=== PATIENT | female | born 1935 | race Caucasian/White ===

== ENCOUNTER 2023-01-19 07:40 | Inpatient (IN) ==
--- NOTE | 2023-01-19 08:07 | Emergency Department Note ---
HPI General Chief complaint: Extremity Injury, Lower Stated complaint: Fall 2 days ago Time Seen by Provider: 01/19/23 07:43 Source: patient Mode of arrival: ambulatory Limitations: no limitations History of Present Illness HPI Narrative: Narrative: 87-year-old female presents with daughter from home normally is able to ambulate with a walker though does need assistance with showering bathing dressing presents with a fall on Tuesday after tripping in the living room on the table landing on her left forearm left hip. No head strike or LOC. Daughter heard it and immediately came in. She was at her baseline mentation. Had some bruising to her left forearm and left inner ankle. However since the fall patient has been unable to bear weight on her left leg secondary to pain. Daughter has been unable to even assist her to walk to the restroom. Otherwise has been eating and drinking well. With no complaints of chest pain shortness of breath nausea vomiting abdominal pain. No neck low back pain. No numbness tingling focal weakness. No blood thinners. Was given a gram of Tylenol at 5 AM for left hip pain. Bruising to left forearm is healing well Related Data Home Medications Medication Instructions Recorded Confirmed ferrous sulfate 325 mg (65 mg 325 mg PO DAILY 04/21/15 08/07/22 iron) tablet lisinopril 10 1 tab PO DAILY 04/21/15 08/07/22 mg-hydrochlorothiazide 12.5 mg tablet cholecalciferol (vitamin D3) 50 2,000 unit PO DAILY 04/25/18 08/07/22 mcg (2,000 unit) chewable tablet omeprazole 20 mg capsule,delayed 20 mg PO ACB 04/25/18 08/07/22 release sennosides 8.6 mg-docusate sodium 1 ea PO PRN PRN Constipation 04/25/18 08/07/22 50 mg tablet (Senokot-S) Previous Rx's Medication Instructions Recorded cephalexin 500 mg capsule 500 mg PO QID #20 caps 08/14/22 Allergies Allergy/AdvReac Type Severity Reaction Status Date / Time No Known Drug Allergies Allergy Verified 06/29/22 08:39 Review of Systems ROS ROS Narrative: Narrative: 10 point review of system is otherwise negative except as mentioned in HPI. [facility] Narrative Patient History Narrative: Narrative: Medical/Surgical/Family History All Active Problems (Updated 01/19/23 @ 10:53 by Ary Arthur MD) Acute UTI (Acute) Dehydration (Acute) Subcapital fracture of left hip (Acute) S/P total knee arthroplasty (Chronic) Laceration (Chronic) Laceration (Acute) Encounter for wound re-check (Chronic) Gastroesophageal reflux disease with hiatal hernia (Chronic) Herpes zoster (Chronic) Cellulitis (Chronic) Recurrent UTI (Chronic) Hypertension (Chronic) DJD (degenerative joint disease) (Chronic) Hiatal hernia (Chronic) Adenomatous colon polyp (Chronic) Hyperlipidemia (Chronic) Osteopenia (Chronic) Incontinence (Chronic) Mixed stress and urge urinary incontinence (Chronic) Incomplete bladder emptying (Chronic) UTI (urinary tract infection) (Acute) Medical History Adenomatous colon polyp Cellulitis DJD (degenerative joint disease) Encounter for wound re-check Gastroesophageal reflux disease with hiatal hernia Herpes zoster Hiatal hernia Hyperlipidemia Hypertension Incontinence Laceration Osteopenia Recurrent UTI Surgical History History of bilateral cataract extraction (~2013) History of breast biopsy x2 History of bunionectomy Left History of colpocleisis (~05/2009) History of shoulder replacement Right, 06/2005 History of surgery CTS b/l History of surgery LTKR S/P total knee arthroplasty Bilateral Family History Mother Cerebrovascular accident Other Cancer Diabetes HTN (hypertension) Social History Smoking Status: Never smoker Alcohol Intake Frequency: does not drink Substance Use: does not use Exam Narrative Narrative: Narrative: (Please note that portions of this note may have been completed with a voice recognition program. Efforts were made to edit the dictations but occasionally words are mis-transcribed) CONSTITUTIONAL: Well-nourished well-hydrated elderly female 65 kg frail. Resting comfortably. Not in acute distress. Non toxic. Awake alert. Cooperative, follows commands. HEAD: Normocephalic. Atraumatic. EYES: EOMI PERRL, corrective lens ENT: No drooling stridor. speech clear fluent. MMM. No septal hematoma. NECK: Supple. Full range of motion. Trachea midline. no midline C-spine tenderness step-offs CARDIOVASCULAR: Adequate peripheral perfusion. S1-S2. Regular rate and rhythm. Systolic murmur. No JVD. No lower extremity edema. +2 radial DP pulses bilaterally. PULMONARY: Nonlabored. Speaking full sentences. No use of accessory muscles. Clear to auscultation bilaterally. No rhonchi wheeze or crackles. No chest wall tenderness crepitus ABDOMINAL: Positive bowel sounds. Soft. Nondistended. Nontender. EXTREMITIES: No gross deformities. Moves all 4 extremities with good strength and tone. No midline TL spine tenderness step-offs. Pelvis stable. Does have limited flexion of the left hip. Bilateral knee replacements. Able to dorsiflex and plantarflex both ankles. Limited flexion at the left knee secondary to pain in the left groin. A small 1 cm bruise noted to the left medial ankle but nontender. Large bruise approximately 8 x 4 cm noted on the mid dorsal left forearm however nontender. No bony abnormalities. Palpated ulnar radial bones with no tenderness on palpation. Able to flex extend at the wrist elbow shoulder with no difficulty discomfort with good handgrips. SKIN: Warm and dry. No petechiae. NEUROLOGY: Sensation is intact. No gross focal deficits. GCS of 15 General Limitations: no limitations Course Vital Signs Vital signs: Vital Signs Temperature 36.8 C 01/19/23 07:41 Pulse Rate 105 H 01/19/23 07:41 Respiratory Rate 20 01/19/23 07:41 Blood Pressure 153/88 01/19/23 07:41 Pulse Oximetry (%) 94 01/19/23 07:41 Oxygen Delivery Method Room Air 01/19/23 07:41 Temperature 36.8 C 01/19/23 07:41 Pulse Rate 99 H 01/19/23 11:32 Respiratory Rate 20 01/19/23 07:41 Blood Pressure 131/81 01/19/23 11:32 Pulse Oximetry (%) 93 01/19/23 11:32 Oxygen Delivery Method Room Air 01/19/23 07:41 MDM MDM Narrative Medical decision making narrative: Narrative:ddx fracture dislocation neurovascular tendon injury etc. Again no head strike no blood thinners no change in mentation. I have a low suspicion for intracranial trauma at this time. Regarding the left forearm bruise patient has no tenderness painful range of motion low suspicion for fracture. No imaging at this time. However I do recommend an image of the left hip pelvis concern for hip pubic rami fractures. Agreeable. Was told to stay NPO. X-ray of the hip pelvis on the left shows no acute fractures location degenerative changes. Her patient is still unable to bear weight on the left hip. And so CT pelvis was ordered. Does show an acute left subcapital fracture of the left femoral neck. I did inadvertently order CT abdomen pelvis. No acute intra- abdominal process and for a large hiatal hernia. I had gone to update the patient and daughter on results clinical versus treatment plan. I subsequently informed that daughter had stepped out. Orthopedics spoken to. Dr Milligan. Unfortunately was informed by nursing that patient did had very minimal breakfast a couple sips of a protein shake and so daughter had fed her an ice cream sandwich bar at 10 AM. I did ask the daughter and patient to remain strict NPO. Will have to go to the OR later this evening. Hospitalist has been paged. Have otherwise been updated on results and emergency room plan. She is resting comfortably. Preop labs EKG were ordered. Chest x-ray is negative. EKG per EDMD interpretation shows a sinus rhythm at 100 bpm. Left axis deviation. No ST elevations or depressions. No T wave abnormalities. Prolonged QTc at 494. Otherwise no ectopy. No old EKG. Labs are otherwise unremarkable. PureWick has been placed we will Andrade if patient is unable to tolerate. Final Impressions: 1. Acute left subcapital fracture of the left femoral neck 2. left forearm contusion Disposition: admit Condition: fair Lab Data Lab results reviewed: Yes I reviewed the patient's lab results. 01/19/23 10:41 Labs: Lab Results 01/19/23 01/19/23 Range/Units 10:41 11:06 WBC 9.1 (4.5-11.0) K/mcL RBC 4.28 (3.59-5.38) M/mcL Hgb 13.3 (11.2-15.7) g/dL Hct 39.4 (34.1-44.9) % POC Hct 40.0 (36-48) MCV 92.1 (80.0-100.0) fL MCH 31.1 (26.0-34.0) pg MCHC 33.8 (31.0-36.0) g/dL RDW 13.2 (11.5-14.5) % Plt Count 224 (140-440) K/mcL MPV 9.2 (8.8-12.5) fL Immature Gran % (Auto) 0.4 (0.0-0.5) % Neut % (Auto) 81.2 H (38.0-78.0) % Lymph % (Auto) 8.8 L (15.5-49.0) % [place] % (Auto) 8.8 (1.0-12.0) % Eos % (Auto) 0.6 (0.0-7.0) % Baso % (Auto) 0.2 (0.0-2.0) % Lymph # (Auto) 0.80 L (1.50-4.80) K/mcL [place] # (Auto) 0.80 (0.10-0.90) K/mcL Eos # (Auto) 0.05 (0.00-0.70) K/mcL Baso # (Auto) 0.02 (0.00-0.30) K/mcL Immature Gran # 0.04 (0.00-0.05) K/mcl Absolute Neutrophils 7.35 (1.80-8.00) K/mcL POC Sodium 137 (133-145) POC Potassium 3.4 (3.3-5.1) POC Chloride 101 (96-108) POC Total CO2 22.0 (22-30) POC Anion Gap 19.0 H (8.0-16.0) POC BUN 22 H (6-20) POC Creatinine 0.5 L (0.6-1.2) POC Glucose 121 H (70-105) POC WB Ioniz Calcium 1.12 L (1.16-1.32) Radiology Data Radiology results reviewed: Yes I reviewed the patient's radiology results. Discharge Plan Patient/Caregiver Discharge Instructions Pt seen by CONSULTANT TEACHER/PA only: No Clinical Impression: Subcapital fracture of left hip Patient Disposition: Xfer As Inpt ([facility]) Condition: Fair Follow up with: Christina Guy MD [Primary Care Provider] - Prescriptions: No Action lisinopril-hydrochlorothiazide 1 TAB tablet 1 tab PO DAILY ferrous sulfate 325 MG tablet 325 mg PO DAILY Patient Comments: 3-4 TIMES DAILY IN PREPARATION FOR SURGERY sennosides-docusate sodium [Senokot-S] 1 EACH tablet 1 ea PO PRN PRN (Reason: Constipation) omeprazole 20 MG capsule,delayed release(DR/EC) 20 mg PO ACB cholecalciferol (vitamin D3) 2,000 UNIT tablet,chewable 2,000 unit PO DAILY cephalexin 500 mg capsule 500 mg PO QID Qty: 20 0RF
--- NOTE | 2023-01-19 09:00 | XRay Report ---
HISTORY: Fell with pubic ramus pain FINDINGS: No fracture or dislocation are detected. The pelvis is rotated to the right. There are multiple heterotopic calcifications in the soft tissues around both hips and there is spurring of the greater trochanters. There is also moderate degenerative disc disease and arthritis in the lower lumbar spine. The pubic bones and rami appear intact. Comparison with the prior x-ray done on 04/01/20 shows there has been significant progression of the arthritis. IMPRESSION: Degenerative changes in both hips and no fracture is detected. Interpreted and Authenticated by: Galo Rajan 01/19/23
[2023-01-19] MEDS ORDERED: ACETAMINOPHEN 325 MG TABLET PO ONE (09:44)
--- NOTE | 2023-01-19 10:26 | Cat Scan Report ---
History: Fell, left hip pain and unable to bear weight technique: The abdomen was imaged without contrast in axial plane at 2.5 mm intervals from the level of the heart to the proximal femurs. Sagittal and coronal reformats were created. The radiation exposure was limited using dose reduction technology. FINDINGS: There is a large hiatus hernia with an organoaxial volvulus. This is a chronic stable finding, unchanged since 09/07/16. There are couple small cysts scattered throughout the liver. These are also a chronic stable finding. The overall size of the liver is normal. The gallbladder appears normal with no calcified stones or thickening of the wall. The bile ducts are nondilated. Spleen is normal in size. No abnormality is detected within the pancreas. The adrenals are normal. There is an exophytic 3 cm cyst laterally in the upper pole of the right kidney. This has enlarged since 2017 but appears benign. The kidneys are otherwise normal. Scattered plaques are present along the wall of normal caliber abdominal aorta. Small intestine is normal. Appendix is noninflamed. Numerous diverticula are present in the sigmoid colon but there is no evidence of acute diverticulitis or bowel obstruction. Uterus and ovaries are atrophic. Urinary bladder is incompletely filled but appears normal. Bone windows reveal an acute subcapital fracture of the left femoral neck. There is impaction along the inferior medial border. The femoral head remains normally aligned with the acetabulum. There is arthritis in the hip with small marginal spurs and heterotopic calcification surrounding the joint. No pelvic fracture is present. There is degenerative disc disease, arthritis and scoliosis in the lumbar spine. IMPRESSION: Subcapital fracture of the left femoral neck Diverticulosis without diverticulitis No intra-abdominal hemorrhage or evidence of lacerated abdominal organ Large hiatus hernia with an organoaxial volvulus Dr. Arthur was called with the report Interpreted and Authenticated by: Galo Rajan 01/19/23
--- NOTE | 2023-01-19 10:50 | XRay Report ---
HISTORY: Preop for repair of left hip fracture FINDINGS: There is a large retrocardiac hiatus hernia. The lungs are clear. The heart size is normal and was better evaluated on the preceding abdomen CT. There is no pleural effusion or pulmonary vascular congestion. Patient has a right shoulder prosthesis. The prosthetic humeral head is subluxed superiorly. There is also arthritis and subluxation at the left shoulder. IMPRESSION: No acute abnormality Interpreted and Authenticated by: Galo Rajan 01/19/23
[2023-01-19 11:09] LABS: POC Calcium, Ionized 1.12 (1.16-1.32); POC Creatinine 0.5 (0.6-1.2); POC Potassium 3.4 (3.3-5.1)
[2023-01-19 11:25] LABS: Basophils # (Auto) 0.02 K/mcL (0.00-0.30); Basophils % (Auto) 0.2 % (0.0-2.0); Eosinophils # (Auto) 0.05 K/mcL (0.00-0.70); Eosinophils % (Auto) 0.6 % (0.0-7.0); Hematocrit 39.4 % (34.1-44.9); Hemoglobin 13.3 g/dL (11.2-15.7); Lymphocytes % (Auto) 8.8 % (15.5-49.0); Mean Cell Volume 92.1 fL (80.0-100.0); Mean Corpuscular HGB Conc 33.8 g/dL (31.0-36.0); Mean Platelet Volume 9.2 fL (8.8-12.5); Monocytes % (Auto) 8.8 % (1.0-12.0); Neutrophils % (Auto) 81.2 % (38.0-78.0); Platelet Count 224 K/mcL (140-440); RBC 4.28 M/mcL (3.59-5.38); Red Cell Distribution Width 13.2 % (11.5-14.5); WBC 9.1 K/mcL (4.5-11.0)
[2023-01-19] MEDS ORDERED: morphine 2 MG/ML VIAL IV ONE (13:18)
--- NOTE | 2023-01-19 13:20 | Internal Med History&Physical ---
HPI History of Present Illness Patient information: Note initiated : 01/19/23 at 1:18 pm Service Date, if different from initiated Date: [] Patient: Karen Shaw 87 y/o F admitted on . Chief Complaint: [] History of present illness: Ms. Shaw is a 87 year old female with past medical history of CKD stage II, hypertension, hyperlipidemia, Parkinson's disease, GERD, osteopenia, recurrent UTIs, DJD presented to ER accompanied by her daughter after she had a fall 2 days ago when she tripped in the living room landing on her left hip and left forearm. She had no head injury, no loss of consciousness. Patient lives with her daughter who heard the fall and came in immediately. Patient had some bruising on her left forearm and left ankle. At baseline patient is able to ambulate with a walker however does need some assistance with ADLs. However since the fall patient has been unable to bear weight on her left leg secondary to pain. Daughter has been unable to even assist her to walk to the restroom. Otherwise has been eating and drinking well. With no complaints of chest pain shortness of breath nausea vomiting abdominal pain. No neck low back pain. No numbness tingling focal weakness. No blood thinners. Was given a gram of Tylenol at 5 AM for left hip pain. Bruising to left forearm is healing well. On presentation patient was tachycardic with heart rate 97, blood pressure was stable. She was satting well on room air. CT abdomen and pelvis showed subcapital fracture of left femoral neck. Large hiatal hernia within organoaxial volvulus. No acute intra-abdominal hemorrhage or lacerated abdominal organs. Lab work including CBC and CMP was benign apart from mild hypokalemia of 3.4. Dr. Milligan from orthopedic was consulted by ER. Preoperative work-up including EKG and chest x-ray unremarkable. Review of system 14 point review of system is otherwise negative except as mentioned in HPI. Physical examination CONSTITUTIONAL: Alert and awake, well nourished female, resting comfortably. In no acute distress. HEAD: Normocephalic. Atraumatic. EYES: EOMI PERRL, corrective lens ENT: No drooling stridor. speech clear fluent. MMM. No septal hematoma. NECK: Supple. Full range of motion. Trachea midline. no midline C-spine tenderness step-offs CARDIOVASCULAR: S1-S2. Regular rate and rhythm. Systolic murmur. No JVD. No lower extremity edema. +2 radial DP pulses bilaterally. PULMONARY: Chest is clear bilaterally, satting well on room air ABDOMINAL: Positive bowel sounds. Soft. Nondistended. Nontender. EXTREMITIES: Tenderness at left hip, movement limited due to pain. Bilateral knee replacements. Able to dorsiflex and plantarflex both ankles. Limited flexion at the left knee secondary to pain in the left groin. A small bruise noted to the left medial ankle but nontender. Large bruise approximately 8 x 4 cm noted on the mid dorsal left forearm however nontender. No bony abnormalities. Able to flex extend at the wrist elbow shoulder with no difficulty discomfort with good handgrips. SKIN: Warm and dry. No petechiae. NEUROLOGY: Sensation is intact. No gross focal deficits. Assessment and plan Acute left subcapital fracture of left femoral neck mechanical fall Left forearm contusion Hypokalemia Hypertension Hyperlipidemia CKD stage II Parkinson's disease GERD DJD DVT prophylaxis in place Plan Dr. Milligan from orthopedic was consulted by ER. Preop EKG and chest x-ray completed. Plan for surgery later today Replace potassium Pain control Blood pressure control with IV as needed Continue PPI Total time taken 70 minutes PFSH PFSH All Active Problems (Updated 01/20/23 @ 07:46 by Sg Edwards PA-C) Acute UTI (Acute) Dehydration (Acute) Subcapital fracture of left hip (Acute) S/P total knee arthroplasty (Chronic) Laceration (Chronic) Laceration (Acute) Encounter for wound re-check (Chronic) Gastroesophageal reflux disease with hiatal hernia (Chronic) Herpes zoster (Chronic) Cellulitis (Chronic) Recurrent UTI (Chronic) Hypertension (Chronic) DJD (degenerative joint disease) (Chronic) Hiatal hernia (Chronic) Adenomatous colon polyp (Chronic) Hyperlipidemia (Chronic) Osteopenia (Chronic) Incontinence (Chronic) Mixed stress and urge urinary incontinence (Chronic) Incomplete bladder emptying (Chronic) UTI (urinary tract infection) (Acute) Medical History Adenomatous colon polyp Cellulitis DJD (degenerative joint disease) Encounter for wound re-check Gastroesophageal reflux disease with hiatal hernia Herpes zoster Hiatal hernia Hyperlipidemia Hypertension Incontinence Laceration Osteopenia Recurrent UTI Surgical History History of bilateral cataract extraction (~2013) History of breast biopsy x2 History of bunionectomy Left History of colpocleisis (~05/2009) History of shoulder replacement Right, 06/2005 History of surgery CTS b/l History of surgery LTKR S/P total knee arthroplasty Bilateral Family History Mother Cerebrovascular accident Other Cancer Diabetes HTN (hypertension) Social History marital status: smoking status: Never smoker alcohol intake frequency: does not drink substance use type: does not use MEDS/ALLERGIES Home Medications and Allergies Home Medications Medication Instructions Recorded Confirmed Type lisinopril 10 1 tab PO DAILY 04/21/15 01/19/23 History mg-hydrochlorothiazide 12.5 mg tablet cholecalciferol (vitamin D3) 50 2,000 unit PO DAILY 04/25/18 01/19/23 History mcg (2,000 unit) chewable tablet omeprazole 20 mg capsule,delayed 20 mg PO ACB 04/25/18 01/19/23 History release sennosides 8.6 mg-docusate sodium 1 ea PO PRN PRN Constipation 04/25/18 01/19/23 History 50 mg tablet (Senokot-S) cyanocobalamin (vitamin B-12) 25 25 mcg PO QDAY 01/19/23 01/19/23 History mcg tablet diphenhydramine 25 2 tab PO QHS PRN Pain (Scale Score 01/19/23 01/19/23 History mg-acetaminophen 500 mg tablet 1-3) (Acetaminophen PM Extra Strength) fluoxetine 40 mg DAILY 01/19/23 01/20/23 History Allergies Allergy/AdvReac Type Severity Reaction Status Date / Time No Known Drug Allergies Allergy Verified 01/19/23 17:00 EXAM Constitutional Vitals: Temp Pulse Resp BP Pulse Ox O2 Del Method 98.2 F 99 H 20 145/92 93 Room Air 01/19/23 07:41 01/19/23 11:32 01/19/23 07:41 01/19/23 13:01 01/19/23 11:32 01/19/23 07:41 DATA Data Completed and Pending Labs: Labs from last 24 hours 01/19/23 01/19/23 01/19/23 11:06 10:41 10:41 WBC 9.1 RBC 4.28 Hgb 13.3 Hct 39.4 POC Hct 40.0 MCV 92.1 MCH 31.1 MCHC 33.8 RDW 13.2 Plt Count 224 MPV 9.2 Immature Gran % (Auto) 0.4 Neut % (Auto) 81.2 H Lymph % (Auto) 8.8 L [place] % (Auto) 8.8 Eos % (Auto) 0.6 Baso % (Auto) 0.2 Lymph # (Auto) 0.80 L [place] # (Auto) 0.80 Eos # (Auto) 0.05 Baso # (Auto) 0.02 Immature Gran # 0.04 Absolute Neutrophils 7.35 PT Pending INR Pending APTT Pending POC Sodium 137 POC Potassium 3.4 POC Chloride 101 POC Total CO2 22.0 POC Anion Gap 19.0 H POC BUN 22 H POC Creatinine 0.5 L POC Glucose 121 H POC WB Ioniz Calcium 1.12 L A/P Time Spent With Patient Time: Total time spent is greater than 50% in coordination of care (as documented) at patient's floor/unit and/or counseling patient:
[2023-01-19 14:22] LABS: Partial Thromboplastin Time 30.9 sec (20.0-37.0); Prothrombin Time 13.3 sec (11.9-14.5)
[2023-01-19] MEDS ORDERED: ONDANSETRON 4 MG/2 ML VIAL IV PRN ×2 (15:27→18:53)
[2023-01-19] MEDS ORDERED: ACETAMINOPHEN 325 MG TABLET PO PRN (15:27)
[2023-01-19] MEDS ORDERED: SCOPOLAMINE 1 PATCH PATCH TOPICAL PRN (15:41)
[2023-01-19] MEDS ORDERED: IPRATROPIUM/ALBUTEROL 3 ML AMPUL.NEB NEB PRN ×2 (15:41→18:53)
[2023-01-19] MEDS: HYDROmorphone 0.5 MG/0.5 ML SYRINGE IV PRN (16:30)
[2023-01-19] MEDS: 0.9 % SODIUM CHLORIDE 10 ML SYRINGE IV SCH ×2 (16:31→20:19)
[2023-01-19] MEDS ORDERED: 0.9 % SODIUM CHLORIDE 250 ML IV SCH (17:45)
[2023-01-19] MEDS ORDERED: PROPOFOL 200 MG/20 ML VIAL IV ONE (17:56)
[2023-01-19] MEDS ORDERED: DEXAMETHASONE 10 MG/ML VIAL ONE (17:56)
[2023-01-19] MEDS ORDERED: ROCURONIUM 10 MG/ML ML IV ONE (17:56)
[2023-01-19] MEDS ORDERED: ONDANSETRON 4 MG/2 ML VIAL ONE (17:56)
[2023-01-19] MEDS ORDERED: SUGAMMADEX SODIUM 200 MG/2 ML VIAL IV ONE (17:56)
[2023-01-19] MEDS ORDERED: PHENYLephrine 1 MG/10 ML SYRINGE (ANEST) ONE (17:56)
[2023-01-19] MEDS ORDERED: fentaNYL 100 MCG/2 ML VIAL IV ONE (17:56)
[2023-01-19] MEDS ORDERED: ceFAZolin 2 GM in DEXTROSE 5% IN WATER 50 ML IV SCH (18:00)
[2023-01-19] MEDS ORDERED: LABETALOL 5 MG/ML ML IV PRN ×2 (18:53→19:23)
[2023-01-19] MEDS ORDERED: ACETAMINOPHEN 1,000 MG/100 ML BAG IV ONE ×2 (18:53→19:26)
[2023-01-19] MEDS ORDERED: HYDROmorphone 0.5 MG/0.5 ML SYRINGE IV PRN (18:53)
[2023-01-19] MEDS ORDERED: METOPROLOL TARTRATE 5 MG/5 ML VIAL IV PRN (18:53)
[2023-01-19] MEDS ORDERED: fentaNYL 100 MCG/2 ML VIAL IV PRN (18:53)
--- NOTE | 2023-01-19 18:58 | Brief Operative Note ---
Brief Operative Note Date of procedure: 01/19/23 Pre-op diagnosis: Left displaced femoral neck fracture, closed Post-op diagnosis: same Procedure: Open treatment of left femoral neck fracture with prosthetic hemiarthroplasty Grafts/Implants: Yes (Depuy Actis 4 std stem, -3 42mm unipolar head) Anesthesia: GLMA Findings: displaced femoral neck fracture Complications: none Surgeon: Henok Milligan Rear Admiral: Sg Edwards Estimated blood loss (cc): 150 Specimens Removed/Pathology: none sent Condition: stable Disposition: PACU
[2023-01-19] MEDS ORDERED: FLEETS ADULT ENEMA PR PRN (18:59)
[2023-01-19] MEDS ORDERED: morphine 4 MG/ML VIAL IV PRN (18:59)
[2023-01-19] MEDS ORDERED: TRANEXAMIC ACID 1,000 MG/10 ML VIAL IV ONE (18:59)
[2023-01-19] MEDS ORDERED: BISACODYL 10 MG SUPP.RECT PR PRN (18:59)
[2023-01-19] MEDS ORDERED: MAGNESIUM HYDROXIDE 30 ML ORAL.SUSP PO PRN (18:59)
[2023-01-19] MEDS ORDERED: POLYETHYLENE GLYCOL 3350 17 GM PACKET PO PRN (18:59)
[2023-01-19] MEDS ORDERED: TRANEXAMIC ACID 1,000 MG/10 ML VIAL ONE (19:18)
[2023-01-19] MEDS ORDERED: POTASSIUM PHOSPHATE 20 MEQ in DEXTROSE 5% IN WATER 250 ML IV ONE (19:22)
[2023-01-19] MEDS: 0.9 % SODIUM CHLORIDE 1,000 ML IV SCH (20:17)
[2023-01-19] MEDS: DOCUSATE SODIUM 100 MG CAPSULE PO SCH (20:52)
[2023-01-19] MEDS: SENNOSIDES 1 TABLET PO SCH (20:53)
[2023-01-19] MEDS ORDERED: POTASSIUM PHOSPHATE 66 MEQ/15 ML VIAL IV ONE (21:51)
[2023-01-20] MEDS: ceFAZolin 1 GM VIAL IV SCH ×2 (03:05→09:39)
[2023-01-20] MEDS: HYDROmorphone 0.5 MG/0.5 ML SYRINGE IV PRN ×3 (03:48→12:32)
[2023-01-20] MEDS: 0.9 % SODIUM CHLORIDE 10 ML SYRINGE IV SCH ×2 (05:00→12:52)
[2023-01-20] MEDS: ceFAZolin 2 GM in DEXTROSE 5% IN WATER 50 ML IV SCH ×2 (06:42→06:43)
--- NOTE | 2023-01-20 07:23 | Consultation ---
DATE OF CONSULTATION: 01/19/2023 INPATIENT CONSULTATION REQUESTING PHYSICIAN: Dr rAy Arthur CONSULTING PHYSICIAN: Henok Milligan MD REASON FOR CONSULTATION: Left hip fracture. HISTORY OF PRESENT ILLNESS: This is an 87-year-old female who ambulates with a walker at home with her daughter and sustained a fall 2 days ago at home. Denied loss of consciousness, although she is a poor historian. They brought her in and took x-rays. These were reported as negative, so she went back home, continued having pain and difficulty, so returned [address] was ordered, which showed a femoral neck fracture. On my review, it appeared displaced into varus. PAST MEDICAL HISTORY: Includes chronic kidney disease, hypertension, hyperlipidemia, Parkinson's, gastroesophageal reflux, osteopenia, and degenerative joint disease. PAST SURGICAL HISTORY: Total knee arthroplasty, bilateral; cataract surgery; breast biopsy; bunionectomy; shoulder replacement; and carpal tunnel syndrome. MEDICATIONS: 1. Lisinopril. 2. Omeprazole. 3. Stool softener. 4. Fluoxetine. 5. Diphenhydramine at bedtime. ALLERGIES: NO KNOWN DRUG ALLERGIES. SOCIAL HISTORY: She has been living with her daughter at her house. No tobacco use. Does not drink alcohol. . FAMILY HISTORY: Positive for cancer, diabetes, hypertension, and stroke. REVIEW SYSTEMS: Really not useful given her mental status. PHYSICAL EXAMINATION: VITAL SIGNS: Upon presentation to the emergency department were temperature 98.2, pulse 105, respirations 20, and blood pressure 153/88. GENERAL APPEARANCE: She appears her stated age, in no acute distress. She is essentially only oriented on my exam to person, otherwise disoriented. Mood and affect are as expected with her mentation. HEART: Regular. LUNGS: Clear. EXTREMITIES: Her left lower extremity reveals some mild shortening. She is exquisitely tender to palpation. She has limited range of motion with crying out in pain. Pulses are palpable distally. IMAGING: Her x-rays reviewed, does show a subcapital femoral neck fracture. CT scan reviewed. This appears to be displaced into varus. IMPRESSION: Varus displaced closed left femoral neck fracture in an 87-year-old female who does have other significant medical comorbidities. PLAN: Due to the varus nature of the fracture and her advanced age, I think a percutaneous pin fixation is likely to fail. Therefore, I would recommend proceeding with open treatment with prosthetic hemiarthroplasty of the left displaced femoral neck fracture. I believe this will give her the best pain control and earliest mobility, which will give her the lowest risk for postoperative complications. The daughter has signed consents and wishes to proceed as she does have power of divorce attorney. JJ:maggie Job ID: [id number] Doc ID: [id number] Henok Milligan MD
--- NOTE | 2023-01-20 07:46 | Orthopedic Progress Note ---
SUBJECTIVE Subjective Patient information: Note initiated : 01/20/23 at 7:44 am Service Date, if different from initiated Date: [] Patient: Karen Shaw 87 y/o F admitted on 01/19/23. Chief Complaint: Pt demented and mostly non-verbal. Expressed no complaints. Constitutional Vitals: Vital Signs Temp Pulse Resp BP Pulse Ox O2 Del Method O2 Flow Rate 98.1 F 92 H 18 146/89 91 Nasal Cannula 1 01/20/23 07:16 01/20/23 07:16 01/20/23 07:16 01/20/23 07:16 01/20/23 07:16 01/20/23 07:16 01/20/23 07:16 Period Temp Pulse Resp BP Sys/Ashley Pulse Ox O2 Del Method O2 Flow Rate Last 24 Hr 96.8 F-99.7 F 79-100 8-21 116-165/69-115 90-99 Nasal Cannula- Room Air 0-5 Intake and Output 01/19/23 01/20/23 01/20/23 19:59 03:59 11:59 Intake Total 1550 0 100 Output Total 150 2 Balance 1400 -2 100 Weight 133 lb 8 oz Intake & Output: Intake & Output 01/19/23 01/20/23 01/20/23 19:59 03:59 11:59 Intake Total 1550 0 100 Output Total 150 2 Balance 1400 -2 100 Weight 133 lb 8 oz Intake: IV 50 100 Ancef 2 gm In Dextrose 5% in 50 Water 50 ml @ 100 mls/hr IV PREOP [facility] Rx#:[id number] Oral 0 IV - Manual Only 1500 Output: Urine Catheter Amount 0 # of times incontinent of urine 2 Estimated Blood Loss 150 Other: Urine Appearance Purewick Clear Urine Color Purewick Yellow Urine Odor Purewick Normal Additional findings Additional findings: Bandages c/d/i. NVI-Distal OBJ DATA Labs 01/19/23 10:41 01/20/23 07:25 Labs: Abnormal Lab Results 01/19/23 01/19/23 11:06 10:41 Neut % (Auto) 81.2 H Lymph % (Auto) 8.8 L Lymph # (Auto) 0.80 L POC Anion Gap 19.0 H POC BUN 22 H POC Creatinine 0.5 L POC Glucose 121 H POC WB Ioniz Calcium 1.12 L Meds: Medications Acetaminophen (Acetaminophen 325 Mg Tablet) 650 mg PO Q6HP PRN; Protocol PRN Reason: Per Pain Protocol/Fever > 101 Hydrocodone Bitart/Acetaminophen (Hydrocodone/Apap 5/325mg Tablet) 1 tab PO Q4HP PRN; Protocol PRN Reason: Per Pain Protocol Bisacodyl (Bisacodyl 10 Mg Supp.Rect) 10 mg DC Q2-3DAYS PRN PRN Reason: Constipation Cefazolin Sodium (Cefazolin 1 Gm Vial) 2 gm IV Q8H [facility] Stop: 01/20/23 10:01 Last Admin: 01/20/23 03:05 Dose: 2 gm Docusate Sodium (Docusate Sodium 100 Mg Capsule) 100 mg PO BID [facility] Last Admin: 01/19/23 20:52 Dose: Not Given Enoxaparin Sodium (Enoxaparin 30 Mg/0.3 Ml Syringe) 40 mg SQ DAILY [facility] Hydromorphone HCl (Hydromorphone 0.5 Mg/0.5 Ml Syringe) 0.5 mg IV Q2HP PRN; Protocol PRN Reason: Per Pain Protocol Last Admin: 01/20/23 07:33 Dose: 0.5 mg Sodium Chloride (Sodium Chloride 0.9%) 1,000 mls @ 75 mls/hr IV .[id number] [facility] Last Admin: 01/19/23 20:17 Dose: 75 mls/hr Labetalol HCl (Labetalol 5 Mg/Ml Ml) 10 mg IV Q4H PRN PRN Reason: for SBP > 160 DBP > 100 Magnesium Hydroxide (Magnesium Hydroxide 30 Ml Oral.Susp) 30 ml PO BIDP PRN PRN Reason: Constipation Morphine Sulfate (Morphine 4 Mg/Ml Vial) 0 mg IV Q1HP PRN; Protocol PRN Reason: Per Pain Protocol Ondansetron HCl (Ondansetron 4 Mg/2 Ml Vial) 4 mg IV Q6HP PRN PRN Reason: Nausea And Vomiting Polyethylene Glycol (Polyethylene Glycol 3350 17 Gm Packet) 17 gm PO DAILYP PRN PRN Reason: Constipation Senna (Sennosides 1 Tablet) 2 tab PO HS [facility] Last Admin: 01/19/23 20:53 Dose: Not Given Sodium Biphosphate/Sodium Phosphate (Fleets Adult Enema) 1 dose DC Q3-4DAYS PRN PRN Reason: Constipation Sodium Chloride (0.9 % Sodium Chloride 10 Ml Syringe) 10 ml IV Q8 [facility] Last Admin: 01/20/23 05:00 Dose: Not Given A/P Time Spent With Patient Time: Total time spent is greater than 50% in coordination of care (as documented) at patient's floor/unit and/or counseling patient:
--- NOTE | 2023-01-20 07:49 | XRay Report ---
HISTORY: Postop repair of left hip fracture FINDINGS: There is a well-positioned prosthetic femoral head and neck. This is well seated within the acetabulum. No new fracture is present. IMPRESSION: Well-positioned left hip prosthesis Interpreted and Authenticated by: Galo Rajan 01/20/23
--- NOTE | 2023-01-20 07:57 | Operative Note ---
DATE OF OPERATION: 01/19/2023 PREOPERATIVE DIAGNOSIS: Left displaced femoral neck fracture, closed. POSTOPERATIVE DIAGNOSIS: Left displaced femoral neck fracture, closed. PROCEDURE PERFORMED: Open treatment of left femoral neck fracture with prosthetic hemiarthroplasty placing a DePuy ACTIS size 4 standard offset femoral stem; a -3 neck spacer with a 42 mm unipolar head. SURGEON: Henok Milligan M.D. TRUSS ASSEMBLER: Sg Edwards PA-C. This providers expertise and technical skill were required throughout the case. The PA assisted with preoperative coordination, intraoperative retraction, wound closure, and dressing and splint application, as well as postoperative documentation and care coordination. ANESTHESIA: General. DRAINS: None. SPECIMEN: Femoral head, which was discarded. ESTIMATED BLOOD LOSS: 150 mL. COMPLICATIONS: None. POSTOPERATIVE CONDITION: Stable. INDICATIONS FOR SURGERY: This is an 87-year-old female who I believe lives at home with her daughter and was somewhat ambulatory, who sustained a fall several days ago and having severe left hip pain. She was taken to the Emergency Department and x-rays were taken. Apparently, this was read as normal. She continued to struggle at home and her daughter brought her back, at which point a CT was obtained, which showed a varus displaced femoral neck fracture. FINDINGS AT SURGERY: Displaced femoral neck fracture. Post implantation showed good range of motion and stability with mild limb lengthening. PROCEDURE IN DETAIL: The patient had been seen preoperatively and consent had been signed by her daughter who had power of attorney at law, acknowledging risks of surgery, which include, but not limited to, bleeding, possibly requiring transfusion; infection, possibly requiring implant removal and prolonged IV antibiotics; injury to nerves, blood vessels, other surrounding structures, anesthetic risks; incomplete or no resolution of symptoms, dislocation, leg length discrepancy, fracture; DVT and pulmonary embolus risks, heart attack, stroke, or . She still wished to proceed. Correct operative site was marked and the patient was then taken to the operating room. General anesthesia induced. She was carefully positioned in the right lateral decubitus position and pressure points carefully padded. The left lower extremity and hip were then carefully prepped and draped in normal sterile fashion. A timeout was performed verifying patient name, operative site, and plan. Ioban was used to cover skin surfaces and a standard posterolateral approach was made with scalpel through skin and subcutaneous tissue. Hemostasis was obtained with Bovie cautery. Once down on the IT band, we irrigated with IrriSept and then incised in line with the skin incision. At this point, we noted she had significant avulsion of her abductors with an exposed greater trochanter. I did go ahead and release the short external rotators off the back of the femoral neck and then T'd this up to the acetabular rim. Hemarthrosis was aspirated. I then made a neck cut with an oscillating saw coming just below her fracture line and then bone fragments were removed with a rongeur. Corkscrew was then placed in the femoral head and this was levered out. It did not fit through a 42 mm, but did fit through a 43, so we cleaned the acetabulum of bone fragments and then trialed a 42, which fit well. We then exposed the proximal femur. A box osteotome was used to gain canal entry. A handheld awl was used to identify canal trajectory. We then began sequentially broaching with the ACTIS broaches until a size 4 seated just below our neck cut. A calcar planer was used and then a standard offset with a 0 head ball construct was placed. We then tried to reduce the hip and were unable. I downsized to a -3. This allowed us to reduce the hip. It was snug; however, when we checked knees and feet she did not appear excessively lengthened and when I passively flexed her knee it did not rebound into extension excessively, so it was very stable with flexion and internal rotation. We redislocated, removed the trial implants. Definitive implants were opened. We irrigated the femoral canal with IrriSept, after a minute irrigated with pulse lavage, and then the stem was impacted and seated down on our neck cut. We then impacted the head ball. The hip was reduced, again with similar tension, verified again with checking knees and feet, and was very stable with flexion, internal rotation. We placed the leg in a padded Vivar, irrigated with IrriSept, after a minute pulse lavaged with saline. I then used #5 FiberWire [id number] for capsule closure posteriorly. We then used #1 Vicryl in two running stitches to close the IT band. Starting in the middle and one running proximal and then the second one starting in the middle and running distally. IrriSept was irrigated again, after a minute pulse lavaged with saline, and then 2-0 Monocryl was used for subcutaneous, alonso for skin. Xeroform and a sterile dressing were applied. The patient was placed in an abductor wedge, turned supine, was awakened, extubated, and transferred to recovery in stable condition. [id number] Job ID: [id number] Doc ID: [id number] Henok Milligan MD
[2023-01-20] MEDS: 0.9 % SODIUM CHLORIDE 1,000 ML IV SCH ×2 (08:30→21:49)
[2023-01-20 08:36] LABS: Basophils # (Auto) 0.01 K/mcL (0.00-0.30); Basophils % (Auto) 0.1 % (0.0-2.0); Eosinophils # (Auto) 0 K/mcL (0.00-0.70); Eosinophils % (Auto) 0 % (0.0-7.0); Hematocrit 35.5 % (34.1-44.9); Hemoglobin 11.6 g/dL (11.2-15.7); Lymphocytes # (Auto) 0.56 K/mcL (1.50-4.80); Lymphocytes % (Auto) 7.1 % (15.5-49.0); Mean Cell Volume 94.7 fL (80.0-100.0); Mean Corpuscular HGB Conc 32.7 g/dL (31.0-36.0); Mean Platelet Volume 9.1 fL (8.8-12.5); Monocytes # (Auto) 0.75 K/mcL (0.10-0.90); Monocytes % (Auto) 9.5 % (1.0-12.0); Neutrophils % (Auto) 82.9 % (38.0-78.0); Platelet Count 211 K/mcL (140-440); RBC 3.75 M/mcL (3.59-5.38); Red Cell Distribution Width 13.3 % (11.5-14.5); WBC 7.9 K/mcL (4.5-11.0)
[2023-01-20] MEDS: DOCUSATE SODIUM 100 MG CAPSULE PO SCH ×2 (09:02→20:35)
[2023-01-20] MEDS: ENOXAPARIN 30 MG/0.3 ML SYRINGE SQ SCH (09:02)
[2023-01-20 09:06] LABS: ALT/SGPT 14 U/L (<40); AST/SGOT 25 U/L (<32); Albumin 3.5 gm/dL (3.2-5.2); Albumin/Globulin Ratio 1.3 (1.0-2.3); Alkaline Phosphatase 61 U/L (39-117); Bilirubin,Total 0.2 mg/dL (0.1-1.0); Blood Urea Nitrogen 16 mg/dL (8-23); Calcium 8.6 mg/dL (8.6-10.4); Carbon Dioxide 24 mmol/L (22-30); Chloride 104 mmol/L (96-108); Globulin 2.8 gm/dL (2.2-3.7); Glomerular Filtration Rate 86; Glucose 120 mg/dL (70-105)
[2023-01-20] MEDS: HYDROcodone/APAP 5/325MG TABLET PO PRN ×2 (12:31→20:35)
--- NOTE | 2023-01-20 14:51 | Internal Med Progress Note ---
SUBJECTIVE Subjective Patient information: Note initiated : 01/20/23 at 2:49 pm Service Date, if different from initiated Date: [] Patient: Karen Shaw 87 y/o F admitted on 01/19/23. Chief Complaint: [] Additional PMFSH (Level 3 Only): Ms. Shaw is a 87 year old female with past medical history of CKD stage II, hypertension, hyperlipidemia, Parkinson's disease, GERD, osteopenia, recurrent UTIs, DJD presented to ER accompanied by her daughter after she had a fall 2 days ago when she tripped in the living room landing on her left hip and left forearm. She had no head injury, no loss of consciousness. Patient lives with her daughter who heard the fall and came in immediately. Patient had some bruising on her left forearm and left ankle. At baseline patient is able to ambulate with a walker however does need some assistance with ADLs. However since the fall patient has been unable to bear weight on her left leg secondary to pain. Daughter has been unable to even assist her to walk to the restroom. Otherwise has been eating and drinking well. With no complaints of chest pain shortness of breath nausea vomiting abdominal pain. No neck low back pain. No numbness tingling focal weakness. No blood thinners. Was given a gram of Tylenol at 5 AM for left hip pain. Bruising to left forearm is healing well. On presentation patient was tachycardic with heart rate 97, blood pressure was stable. She was satting well on room air. CT abdomen and pelvis showed subcapital fracture of left femoral neck. Large hiatal hernia within organoaxial volvulus. No acute intra-abdominal hemorrhage or lacerated abdominal organs. Lab work including CBC and CMP was benign apart from mild hypokalemia of 3.4. Dr. Milligan from orthopedic was consulted by ER. Preoperative work-up including EKG and chest x-ray unremarkable. 01/20. Pt is demented and mostly non-verbal. She appeared comfortable, she expressed no complaints Review of system 14 point review of system is otherwise negative except as mentioned in HPI. Physical examination CONSTITUTIONAL: Alert, resting in bed appears comfortable HEAD: Normocephalic. Atraumatic. EYES: EOMI PERRL, corrective lens ENT: MMM. NECK: Supple. Full range of motion. Trachea midline. no midline C-spine tenderness step-offs CARDIOVASCULAR: S1-S2. Regular rate and rhythm. Systolic murmur. No JVD. No lower extremity edema. +2 radial DP pulses bilaterally. PULMONARY: Chest is clear bilaterally, satting well on room air ABDOMINAL: Abdomen soft, non tender. EXTREMITIES: left hip s/p left hip surgery, dressing c/d/i. distal nv intact SKIN: Warm and dry. No petechiae. NEUROLOGY: Sensation is intact. No gross focal deficits. Assessment and plan Left displaced femoral neck fracture, s/p ORIF with prosthetic hemiarthroplasty by Dr. Milligan from orthopedic. Mechanical fall Left forearm contusion, improving Hypokalemia, improved Hypertension Hyperlipidemia CKD stage II Parkinson's disease GERD DJD DVT prophylaxis in place Plan Dr. Milligan from orthopedic following. Pain control Blood pressure control with IV as needed Continue PPI Continue PT/OT Total time > 50 min Constitutional Vitals: Vital Signs Temp Pulse Resp BP Pulse Ox O2 Del Method O2 Flow Rate 98.4 F 88 16 130/80 99 Nasal Cannula 1 01/20/23 11:16 01/20/23 11:16 01/20/23 11:16 01/20/23 11:16 01/20/23 11:16 01/20/23 11:16 01/20/23 11:16 Period Temp Pulse Resp BP Sys/Ashley Pulse Ox O2 Del Method O2 Flow Rate Last 24 Hr 96.8 F-99.7 F 79-97 8-21 116-165/69-115 90-99 Nasal Cannula- Room Air 0-5 Intake and Output 01/20/23 01/20/23 01/20/23 03:59 11:59 19:59 Intake Total 0 1896 200 Output Total 2 Balance -2 1896 200 Weight 60.555 kg 60.555 kg Patient Weight 01/21/23 03:59 Weight 60.555 kg Intake & Output: Intake & Output 01/20/23 01/20/23 01/20/23 03:59 11:59 19:59 Intake Total 0 1896 200 Output Total 2 Balance -2 1896 200 Weight 60.555 kg 60.555 kg Intake: IV 1016 Sodium Chloride 0.9% 1,000 ml @ 916 75 mls/hr IV .[id number] [facility] Rx#: [id number] Oral 0 880 200 Output: Urine Catheter Amount 0 # of times incontinent of urine 2 Other: Meal Lunch Percent of Meal Consumed 50% Feeding Ability Total Assistance Urine Appearance Purewick Clear Clear Urine Color Purewick Yellow Yellow Urine Odor Purewick Normal Strong OBJ DATA Labs 01/20/23 07:26 01/20/23 07:25 Labs: Abnormal Lab Results 01/20/23 01/20/23 01/19/23 07:26 07:25 11:06 Neut % (Auto) 82.9 H Lymph % (Auto) 7.1 L Lymph # (Auto) 0.56 L POC Anion Gap 19.0 H POC BUN 22 H Creatinine 0.5 L POC Creatinine 0.5 L Glucose 120 H POC Glucose 121 H POC WB Ioniz Calcium 1.12 L 01/19/23 10:41 Neut % (Auto) 81.2 H Lymph % (Auto) 8.8 L Lymph # (Auto) 0.80 L POC Anion Gap POC BUN Creatinine POC Creatinine Glucose POC Glucose POC WB Ioniz Calcium Meds: Medications Acetaminophen (Acetaminophen 325 Mg Tablet) 650 mg PO Q6HP PRN; Protocol PRN Reason: Per Pain Protocol/Fever > 101 Hydrocodone Bitart/Acetaminophen (Hydrocodone/Apap 5/325mg Tablet) 1 tab PO Q4HP PRN; Protocol PRN Reason: Per Pain Protocol Last Admin: 01/20/23 12:31 Dose: 1 tab Bisacodyl (Bisacodyl 10 Mg Supp.Rect) 10 mg MT Q2-3DAYS PRN PRN Reason: Constipation Docusate Sodium (Docusate Sodium 100 Mg Capsule) 100 mg PO BID [facility] Last Admin: 01/20/23 09:02 Dose: 100 mg Enoxaparin Sodium (Enoxaparin 30 Mg/0.3 Ml Syringe) 40 mg SQ DAILY [facility] Last Admin: 01/20/23 09:02 Dose: 40 mg Hydromorphone HCl (Hydromorphone 0.5 Mg/0.5 Ml Syringe) 0.5 mg IV Q2HP PRN; Protocol PRN Reason: Per Pain Protocol Last Admin: 01/20/23 12:32 Dose: 0.5 mg Sodium Chloride (Sodium Chloride 0.9%) 1,000 mls @ 75 mls/hr IV .[id number] [facility] Last Admin: 01/20/23 08:30 Dose: 75 mls/hr Labetalol HCl (Labetalol 5 Mg/Ml Ml) 10 mg IV Q4H PRN PRN Reason: for SBP > 160 DBP > 100 Magnesium Hydroxide (Magnesium Hydroxide 30 Ml Oral.Susp) 30 ml PO BIDP PRN PRN Reason: Constipation Morphine Sulfate (Morphine 4 Mg/Ml Vial) 0 mg IV Q1HP PRN; Protocol PRN Reason: Per Pain Protocol Last Admin: 01/20/23 08:37 Dose: 1 mg Ondansetron HCl (Ondansetron 4 Mg/2 Ml Vial) 4 mg IV Q6HP PRN PRN Reason: Nausea And Vomiting Polyethylene Glycol (Polyethylene Glycol 3350 17 Gm Packet) 17 gm PO DAILYP PRN PRN Reason: Constipation Senna (Sennosides 1 Tablet) 2 tab PO HS [facility] Last Admin: 01/19/23 20:53 Dose: Not Given Sodium Biphosphate/Sodium Phosphate (Fleets Adult Enema) 1 dose MT Q3-4DAYS PRN PRN Reason: Constipation Sodium Chloride (0.9 % Sodium Chloride 10 Ml Syringe) 10 ml IV Q8 [facility] Last Admin: 01/20/23 12:52 Dose: Not Given A/P Time Spent With Patient Time: Total time spent is greater than 50% in coordination of care (as documented) at patient's floor/unit and/or counseling patient: QUALITY VTE Deep Vein Thrombosis/Pulmonary Embolism Present on Admission: No
[2023-01-20] MEDS: SENNOSIDES 1 TABLET PO SCH (20:35)
[2023-01-21] MEDS: 0.9 % SODIUM CHLORIDE 10 ML SYRINGE IV SCH ×4 (01:51→20:47)
[2023-01-21 07:28] LABS: Basophils # (Auto) 0.02 K/mcL (0.00-0.30); Basophils % (Auto) 0.2 % (0.0-2.0); Eosinophils # (Auto) 0.05 K/mcL (0.00-0.70); Eosinophils % (Auto) 0.6 % (0.0-7.0); Hematocrit 31.2 % (34.1-44.9); Hemoglobin 10.2 g/dL (11.2-15.7); Lymphocytes # (Auto) 0.83 K/mcL (1.50-4.80); Lymphocytes % (Auto) 9.2 % (15.5-49.0); Mean Cell Volume 93.7 fL (80.0-100.0); Mean Corpuscular HGB Conc 32.7 g/dL (31.0-36.0); Mean Platelet Volume 9.3 fL (8.8-12.5); Monocytes % (Auto) 14.3 % (1.0-12.0); Neutrophils % (Auto) 75.1 % (38.0-78.0); Platelet Count 201 K/mcL (140-440); RBC 3.33 M/mcL (3.59-5.38); Red Cell Distribution Width 13.3 % (11.5-14.5); WBC 9.1 K/mcL (4.5-11.0)
[2023-01-21 07:42] LABS: ALT/SGPT 7 U/L (<40); AST/SGOT 18 U/L (<32); Albumin 2.7 gm/dL (3.2-5.2); Albumin/Globulin Ratio 1.1 (1.0-2.3); Alkaline Phosphatase 55 U/L (39-117); Bilirubin,Total 0.4 mg/dL (0.1-1.0); Blood Urea Nitrogen 12 mg/dL (8-23); Calcium 7.9 mg/dL (8.6-10.4); Carbon Dioxide 22 mmol/L (22-30); Chloride 103 mmol/L (96-108); Globulin 2.5 gm/dL (2.2-3.7); Glomerular Filtration Rate 86; Glucose 100 mg/dL (70-105)
[2023-01-21] MEDS: HYDROcodone/APAP 5/325MG TABLET PO PRN ×3 (08:31→20:45)
[2023-01-21] MEDS: DOCUSATE SODIUM 100 MG CAPSULE PO SCH ×2 (08:31→20:46)
[2023-01-21] MEDS: ENOXAPARIN 30 MG/0.3 ML SYRINGE SQ SCH (08:34)
--- NOTE | 2023-01-21 09:22 | Internal Med Progress Note ---
SUBJECTIVE Subjective Patient information: Ms. Shaw is a 87 year old female with past medical history of CKD stage II, hypertension, hyperlipidemia, Parkinson's disease, GERD, osteopenia, recurrent UTIs, DJD presented to ER accompanied by her daughter after she had a fall 2 days ago when she tripped in the living room landing on her left hip and left forearm. She had no head injury, no loss of consciousness. Patient lives with her daughter who heard the fall and came in immediately. Patient had some b ruising on her left forearm and left ankle. At baseline patient is able to ambulate with a walker however does need some assistance with ADLs. However since the fall patient has been unable to bear weight on her left leg secondary to pain. Daughter has been unable to even assist her to walk to the restroom. Otherwise has been eating and drinking well. With no complaints of chest pain shortness of breath nausea vomiting abdominal pain. No neck low back pain. No numbness tingling focal weakness. No blood thinners. Was given a gram of Tylenol at 5 AM for left hip pain. Bruising to left forearm is healing well. On presentation patient was tachycardic with heart rate 97, blood pressure was stable. She was satting well on room air. CT abdomen and pelvis showed subcapital fracture of left femoral neck. Large hiatal hernia within organoaxial volvulus. No acute intra-abdominal hemorrhage or lacerated abdominal organs. Lab work including CBC and CMP was benign apart from mild hy pokalemia of 3.4. Dr. Milligan from orthopedic was consulted by ER. Preoperative work-up including EKG and chest x-ray unremarkable. 7. Pt is demented and mostly non-verbal. She appeared comfortable, she expressed no complaints 01/21. Overnight no acute events. Labs reviewed. Hemoglobin 10.2 down from 11.6 yesterday. Otherwise fairly unremarkable. Daughter present at bedside. She reported that patient only speaks few words however she has not been doing so after the fall. Low-grade temp of 99.9. On 1 L nasal cannula oxygen. Denies any cough, shortness of breath, chest pain, palpitations, abdominal pain, urinary symptoms Review of system 14 point review of system is otherwise negative except as mentioned in HPI. Physical examination CONSTITUTIONAL: Alert, sitting up in bed, in no acute distress, daughter present at bedside HEAD: Normocephalic. Atraumatic. EYES: EOMI PERRL, corrective lens ENT: MMM. NECK: Supple. Full range of motion. Trachea midline. no midline C-spine tenderness step-offs CARDIOVASCULAR: S1-S2. Regular rate and rhythm. Systolic murmur. No JVD. No lower extremity edema. +2 radial DP pulses bilaterally. PULMONARY: Chest is clear bilaterally, satting well on room air ABDOMINAL: Abdomen soft, non tender. EXTREMITIES: left hip s/p left hip surgery, dressing c/d/i. distal nv intact SKIN: Warm and dry. No petechiae. NEUROLOGY: Significant dementia, remains nonverbal, no focal deficits Assessment and plan Left displaced femoral neck fracture, s/p ORIFwith prosthetic hemiarthroplasty by Dr. Milligan from orthopedic. Mechanical fall Left forearm contusion, improving Hypokalemia, improved Hypertension Hyperlipidemia CKD stage II Parkinson's disease GERD DJD DVT prophylaxis in place Plan Resume home meds including antihypertensives Pain control Continue PT OT Will need SNF placement. Case management working on placement. Total time > 50 min Constitutional Vitals: Vital Signs Temp Pulse Resp BP Pulse Ox O2 Del Method O2 Flow Rate 99.9 F H 97 H 18 152/88 96 Nasal Cannula 1 01/21/23 08:00 01/21/23 08:00 01/21/23 08:00 01/21/23 08:00 01/21/23 08:00 01/21/23 08:00 01/21/23 08:00 Period Temp Pulse Resp BP Sys/Ashley Pulse Ox O2 Del Method O2 Flow Rate Last 24 Hr 98.1 F-99.9 F 88-98 15-18 118-152/71-88 87-99 Nasal Cannula- Room Air 1-1 Intake and Output 01/20/23 01/21/23 01/21/23 19:59 03:59 11:59 Intake Total 600 999 340 Output Total 1 250 Balance 599 749 340 Weight 60.555 kg 60.056 kg Intake & Output: Intake & Output 01/20/23 01/21/23 01/21/23 19:59 03:59 11:59 Intake Total 600 999 340 Output Total 1 250 Balance 599 749 340 Weight 60.555 kg 60.056 kg Intake: IV 999 Sodium Chloride 0.9% 1,000 ml @ 999 75 mls/hr IV .[id number] [facility] Rx#: [id number] Oral 600 340 Output: Void Amount 250 # of times incontinent of urine 1 Other: Meal Lunch Percent of Meal Consumed 25% Feeding Ability Total Assistance Urine Appearance Clear Urine Color Bright Yellow # Voids 1 OBJ DATA Labs 01/21/23 05:28 01/21/23 05:28 Labs: Abnormal Lab Results 01/21/23 01/21/23 01/20/23 05:28 05:28 07:26 RBC 3.33 L Hgb 10.2 L Hct 31.2 L Immature Gran % (Auto) 0.6 H Neut % (Auto) 82.9 H Lymph % (Auto) 9.2 L 7.1 L [place] % (Auto) 14.3 H Lymph # (Auto) 0.83 L 0.56 L [place] # (Auto) 1.30 H POC Anion Gap POC BUN Creatinine 0.5 L POC Creatinine Glucose POC Glucose Calcium 7.9 L POC WB Ioniz Calcium Total Protein 5.2 L Albumin 2.7 L 01/20/23 01/19/23 01/19/23 07:25 11:06 10:41 RBC Hgb Hct Immature Gran % (Auto) Neut % (Auto) 81.2 H Lymph % (Auto) 8.8 L [place] % (Auto) Lymph # (Auto) 0.80 L [place] # (Auto) POC Anion Gap 19.0 H POC BUN 22 H Creatinine 0.5 L POC Creatinine 0.5 L Glucose 120 H POC Glucose 121 H Calcium POC WB Ioniz Calcium 1.12 L Total Protein Albumin Meds: Medications Acetaminophen (Acetaminophen 325 Mg Tablet) 650 mg PO Q6HP PRN; Protocol PRN Reason: Per Pain Protocol/Fever > 101 Hydrocodone Bitart/Acetaminophen (Hydrocodone/Apap 5/325mg Tablet) 1 tab PO Q4HP PRN; Protocol PRN Reason: Per Pain Protocol Last Admin: 01/21/23 08:31 Dose: 1 tab Bisacodyl (Bisacodyl 10 Mg Supp.Rect) 10 mg MT Q2-3DAYS PRN PRN Reason: Constipation Docusate Sodium (Docusate Sodium 100 Mg Capsule) 100 mg PO BID [facility] Last Admin: 01/21/23 08:31 Dose: 100 mg Enoxaparin Sodium (Enoxaparin 30 Mg/0.3 Ml Syringe) 40 mg SQ DAILY [facility] Last Admin: 01/21/23 08:34 Dose: 40 mg Hydromorphone HCl (Hydromorphone 0.5 Mg/0.5 Ml Syringe) 0.5 mg IV Q2HP PRN; Pr otocol PRN Reason: Per Pain Protocol Last Admin: 01/20/23 12:32 Dose: 0.5 mg Sodium Chloride (Sodium Chloride 0.9%) 1,000 mls @ 75 mls/hr IV .[id number] [facility] Last Admin: 01/20/23 21:49 Dose: 75 mls/hr Labetalol HCl (Labetalol 5 Mg/Ml Ml) 10 mg IV Q4H PRN PRN Reason: for SBP > 160 DBP > 100 Magnesium Hydroxide (Magnesium Hydroxide 30 Ml Oral.Susp) 30 ml PO BIDP PRN PRN Reason: Constipation Morphine Sulfate (Morphine 4 Mg/Ml Vial) 0 mg IV Q1HP PRN; Protocol PRN Reason: Per Pain Protocol Last Admin: 01/20/23 08:37 Dose: 1 mg Ondansetron HCl (Ondansetron 4 Mg/2 Ml Vial) 4 mg IV Q6HP PRN PRN Reason: Nausea And Vomiting Polyethylene Glycol (Polyethylene Glycol 3350 17 Gm Packet) 17 gm PO DAILYP PRN PRN Reason: Constipation Senna (Sennosides 1 Tablet) 2 tab PO HS [facility] Last Admin: 01/20/23 20:35 Dose: 2 tab Sodium Biphosphate/Sodium Phosphate (Fleets Adult Enema) 1 dose MT Q3-4DAYS PRN PRN Reason: Constipation Sodium Chloride (0.9 % Sodium Chloride 10 Ml Syringe) 10 ml IV Q8 [facility] Last Admin: 01/21/23 05:51 Dose: Not Given A/P Time Spent With Patient Time: Total time spent is greater than 50% in coordination of care (as documented) at patient's floor/unit and/or counseling patient: QUALITY VTE Deep Vein Thrombosis/Pulmonary Embolism Present on Admission: No
[2023-01-21] MEDS ORDERED: SENNOSIDES/DOCUSATE SODIUM 1 TAB TABLET PO PRN (09:25)
[2023-01-21] MEDS: CYANOCOBALAMIN PO SCH (10:00)
[2023-01-21] MEDS: FLUoxetine HCL 20 MG CAPSULE PO SCH (10:00)
[2023-01-21] MEDS: VITAMIN D3 25 MCG TABLET PO SCH (10:00)
[2023-01-21] MEDS: 0.9 % SODIUM CHLORIDE 1,000 ML IV SCH ×2 (10:00→23:35)
[2023-01-21] MEDS: OMEPRAZOLE 20 MG CAPSULE PO SCH (10:03)
[2023-01-21] MEDS: LISINOPRIL 10 MG TABLET PO SCH (10:23)
[2023-01-21 11:16] LABS: Appearance,Urine CLEAR (Clear); Bilirubin,Urine Negative (Negative); Color,Urine YELLOW; Culture Indicated,Urine No; Glucose,Urine (UA) Negative (Negative); Ketones,Urine 5 mg/dL (Negative); Leukocyte Esterase,Urine Negative /uL (Negative); Nitrate,Urine Negative (Negative); Protein,Urine 30 mg/dL (Negative); Specific Gravity,Urine 1.026 (1.000-1.035); Urine Blood 0.03 mg/dL (Negative); Urine RBC 1 /hpf (0-3); Urine Squamous Epithelial Cell 1 /hpf (0-4); Urine Transitional Epi Cells < 1 /hpf (0-2); Urine WBC 7 /hpf (0-4); Urobilinogen,Urine Negative
[2023-01-21] MEDS: HYDROmorphone 0.5 MG/0.5 ML SYRINGE IV PRN (15:11)
[2023-01-21] MEDS: SENNOSIDES 1 TABLET PO SCH (20:44)
[2023-01-21] MEDS ORDERED: diphenhydrAMINE 25 MG CAPSULE PO PRN (21:00)
[2023-01-22] MEDS: 0.9 % SODIUM CHLORIDE 10 ML SYRINGE IV SCH ×3 (05:00→20:29)
[2023-01-22 06:58] LABS: Basophils # (Auto) 0.02 K/mcL (0.00-0.30); Basophils % (Auto) 0.2 % (0.0-2.0); Eosinophils # (Auto) 0.07 K/mcL (0.00-0.70); Eosinophils % (Auto) 0.8 % (0.0-7.0); Hematocrit 32.1 % (34.1-44.9); Hemoglobin 10.2 g/dL (11.2-15.7); Lymphocytes # (Auto) 0.77 K/mcL (1.50-4.80); Lymphocytes % (Auto) 9.3 % (15.5-49.0); Mean Cell Volume 95.3 fL (80.0-100.0); Mean Corpuscular HGB Conc 31.8 g/dL (31.0-36.0); Mean Platelet Volume 9.2 fL (8.8-12.5); Monocytes # (Auto) 0.95 K/mcL (0.10-0.90); Monocytes % (Auto) 11.5 % (1.0-12.0); Neutrophils % (Auto) 77.7 % (38.0-78.0); Platelet Count 217 K/mcL (140-440); RBC 3.37 M/mcL (3.59-5.38); Red Cell Distribution Width 13.2 % (11.5-14.5); WBC 8.3 K/mcL (4.5-11.0)
[2023-01-22] MEDS: OMEPRAZOLE 20 MG CAPSULE PO SCH (07:30)
[2023-01-22 08:01] LABS: ALT/SGPT 6 U/L (<40); AST/SGOT 17 U/L (<32); Albumin 2.5 gm/dL (3.2-5.2); Albumin/Globulin Ratio 0.8 (1.0-2.3); Alkaline Phosphatase 63 U/L (39-117); Bilirubin,Total 0.4 mg/dL (0.1-1.0); Blood Urea Nitrogen 7 mg/dL (8-23); Calcium 8.3 mg/dL (8.6-10.4); Carbon Dioxide 22 mmol/L (22-30); Chloride 104 mmol/L (96-108); Glomerular Filtration Rate 86; Glucose 105 mg/dL (70-105)
[2023-01-22] MEDS: FLUoxetine HCL 20 MG CAPSULE PO SCH (08:33)
[2023-01-22] MEDS: POTASSIUM CHLORIDE 20 MEQ TABLET PO SCH ×2 (08:33→16:57)
[2023-01-22] MEDS: ENOXAPARIN 40 MG/0.4 ML SYRINGE SQ SCH (08:33)
[2023-01-22] MEDS: DOCUSATE SODIUM 100 MG CAPSULE PO SCH ×2 (08:33→20:28)
[2023-01-22] MEDS: LISINOPRIL 10 MG TABLET PO SCH (08:33)
[2023-01-22] MEDS: CYANOCOBALAMIN PO SCH (08:33)
[2023-01-22] MEDS: VITAMIN D3 25 MCG TABLET PO SCH (08:41)
[2023-01-22] MEDS: 0.9 % SODIUM CHLORIDE 1,000 ML IV SCH (11:40)
[2023-01-22] MEDS: HYDROmorphone 0.5 MG/0.5 ML SYRINGE IV PRN (13:06)
--- NOTE | 2023-01-22 15:21 | Internal Med Progress Note ---
SUBJECTIVE Subjective Patient information: Note initiated : 01/22/23 at 3:18 pm Service Date, if different from initiated Date: [] Patient: Karen Shaw 87 y/o F admitted on 01/19/23. Chief Complaint: [] Additional PMFSH (Level 3 Only): Ms. Shaw is a 87 year old female with past medical history of CKD stage II, hypertension, hyperlipidemia, Parkinson's disease, GERD, osteopenia, recurrent UTIs, DJD presented to ER accompanied by her daughter after she had a fall 2 days ago when she tripped in the living room landing on her left hip and left forearm. She had no head injury, no loss of consciousness. Patient lives with her daughter who heard the fall and came in immediately. Patient had some bruising on her left forearm and left ankle. At baseline patient is able to ambulate with a walker however does need some assistance with ADLs. However since the fall patient has been unable to bear weight on her left leg secondary to pain. Daughter has been unable to even assist her to walk to the restroom. Otherwise has been eating and drinking well. With no complaints of chest pain shortness of breath nausea vomiting abdominal pain. No neck low back pain. No numbness tingling focal weakness. No blood thinners. Was given a gram of Tylenol at 5 AM for left hip pain. Bruising to left forearm is healing well. On presentation patient was tachycardic with heart rate 97, blood pressure was stable. She was satting well on room air. CT abdomen and pelvis showed subcapital fracture of left femoral neck. Large hiatal hernia within organoaxial volvulus. No acute intra-abdominal hemorrhage or lacerated abdominal organs. Lab work including CBC and CMP was benign apart from mild hypokalemia of 3.4. Dr. Milligan from orthopedic was consulted by ER. Preoperative work-up including EKG and chest x-ray unremarkable. 01/20. Pt is demented and mostly non-verbal. She appeared comfortable, she expressed no complaints 01/21. Overnight no acute events. Labs reviewed. Hemoglobin 10.2 down from 11.6 yesterday. Otherwise fairly unremarkable. Daughter present at bedside. She reported that patient only speaks few words however she has not been doing so after the fall. Low-grade temp of 99.9. On 1 L nasal cannula oxygen. Denies any cough, shortness of breath, chest pain, palpitations, abdominal pain, urinary symptoms /. Daughter present at bedside. Patient is more verbal per daughter. No acute events. He is working with therapies though she only took few steps. Patient is 97% on 2 L nasal cannula oxygen. Reports no pain Review of system 14 point review of system is otherwise negative except as mentioned in HPI. Physical examination CONSTITUTIONAL: Alert sitting up comfortably, daughter at bedside HEAD: Normocephalic. Atraumatic. EYES: EOMI PERRL, corrective lens ENT: MMM. NECK: Supple. Full range of motion. Trachea midline. no midline C-spine tenderness step-offs CARDIOVASCULAR: S1-S2. Regular rate and rhythm. Systolic murmur. No JVD. No lower extremity edema. +2 radial DP pulses bilaterally. PULMONARY: Chest is clear bilaterally, satting well on room air ABDOMINAL: Abdomen soft, non tender. EXTREMITIES: left hip s/p left hip surgery, dressing c/d/i. distal nv intact SKIN: Warm and dry. No petechiae. NEUROLOGY: Significant dementia, remains nonverbal, no focal deficits Assessment and plan Left displaced femoral neck fracture, s/p ORIFwith prosthetic hemiarthroplasty by Dr. Milligan from orthopedic. Mechanical fall Left forearm contusion, improving Hypokalemia, improved Hypertension Hyperlipidemia CKD stage II Parkinson's disease GERD DJD DVT prophylaxis in place Plan Continue pain control Encourage participation in therapies Continue home meds Lab work as needed Will need SNF placement. Case management working on placement. Total time > 40 min Constitutional Vitals: Vital Signs Temp Pulse Resp BP Pulse Ox O2 Del Method O2 Flow Rate 98.6 F 88 18 134/65 97 Nasal Cannula 2 01/22/23 11:41 01/22/23 11:41 01/22/23 11:41 01/22/23 11:41 01/22/23 11:41 01/22/23 11:41 01/22/23 11:41 Period Temp Pulse Resp BP Sys/Ashley Pulse Ox O2 Del Method O2 Flow Rate Last 24 Hr 97.5 F-100.2 F 83-93 13-18 117-140/65-74 92-98 Nasal Cannula- Room Air 1-2 Intake and Output 01/22/23 01/22/23 01/22/23 03:59 11:59 19:59 Intake Total 1000 906 400 Output Total 1 Balance 1000 905 400 Weight 63.049 kg Intake & Output: Intake & Output 01/22/23 01/22/23 01/22/23 03:59 11:59 19:59 Intake Total 1000 906 400 Output Total 1 Balance 1000 905 400 Weight 63.049 kg Intake: IV 1000 906 Sodium Chloride 0.9% 1,000 ml @ 1000 906 75 mls/hr IV .[id number] [facility] Rx#: [id number] Oral 400 Output: Urine/Stool Mix 1 Other: Urine Appearance Clear Urine Color Yellow Stool Size Small Large Stool Color Brown Brown Yellow Stool Consistency Soft Liquid Liquid Loose # Voids 1 # of times incontinent of 1 Bowels OBJ DATA Labs 01/22/23 03:58 01/22/23 03:58 Labs: Abnormal Lab Results 01/22/23 01/22/23 01/21/23 03:58 03:58 10:20 RBC 3.37 L Hgb 10.2 L Hct 32.1 L Immature Gran % (Auto) Neut % (Auto) Lymph % (Auto) 9.3 L [place] % (Auto) Lymph # (Auto) 0.77 L [place] # (Auto) 0.95 H Potassium 3.1 L BUN 7 L Creatinine 0.5 L Glucose Calcium 8.3 L Total Protein 5.5 L Albumin 2.5 L Albumin/Globulin Ratio 0.8 L Urine Protein 30 A Urine Ketones 5 A Urine WBC 7 H 01/21/23 01/21/23 01/20/23 05:28 05:28 07:26 RBC 3.33 L Hgb 10.2 L Hct 31.2 L Immature Gran % (Auto) 0.6 H Neut % (Auto) 82.9 H Lymph % (Auto) 9.2 L 7.1 L [place] % (Auto) 14.3 H Lymph # (Auto) 0.83 L 0.56 L [place] # (Auto) 1.30 H Potassium BUN Creatinine 0.5 L Glucose Calcium 7.9 L Total Protein 5.2 L Albumin 2.7 L Albumin/Globulin Ratio Urine Protein Urine Ketones Urine WBC 01/20/23 07:25 RBC Hgb Hct Immature Gran % (Auto) Neut % (Auto) Lymph % (Auto) [place] % (Auto) Lymph # (Auto) [place] # (Auto) Potassium BUN Creatinine 0.5 L Glucose 120 H Calcium Total Protein Albumin Albumin/Globulin Ratio Urine Protein Urine Ketones Urine WBC Meds: Medications Acetaminophen (Acetaminophen 325 Mg Tablet) 650 mg PO Q6HP PRN; Protocol PRN Reason: Per Pain Protocol/Fever > 101 Last Admin: 01/21/23 20:44 Dose: 650 mg Hydrocodone Bitart/Acetaminophen (Hydrocodone/Apap 5/325mg Tablet) 1 tab PO Q4HP PRN; Protocol PRN Reason: Per Pain Protocol Last Admin: 01/21/23 20:45 Dose: 1 tab Bisacodyl (Bisacodyl 10 Mg Supp.Rect) 10 mg [place] Q2-3DAYS PRN PRN Reason: Constipation Diphenhydramine HCl (Diphenhydramine 25 Mg Capsule) 50 mg PO HSP PRN PRN Reason: Insomnia Docusate Sodium (Docusate Sodium 100 Mg Capsule) 100 mg PO BID [facility] Last Admin: 01/22/23 08:33 Dose: 100 mg Enoxaparin Sodium (Enoxaparin 40 Mg/0.4 Ml Syringe) 40 mg SQ DAILY [facility] Last Admin: 01/22/23 08:33 Dose: 40 mg Fluoxetine HCl (Fluoxetine Hcl 20 Mg Capsule) 40 mg PO DAILY [facility] Last Admin: 01/22/23 08:33 Dose: 40 mg Hydromorphone HCl (Hydromorphone 0.5 Mg/0.5 Ml Syringe) 0.5 mg IV Q2HP PRN; Protocol PRN Reason: Per Pain Protocol Last Admin: 01/22/23 13:06 Dose: 0.5 mg Sodium Chloride (Sodium Chloride 0.9%) 1,000 mls @ 75 mls/hr IV .[id number] [facility] Last Admin: 01/22/23 11:40 Dose: 75 mls/hr Labetalol HCl (Labetalol 5 Mg/Ml Ml) 10 mg IV Q4H PRN PRN Reason: for SBP > 160 DBP > 100 Lisinopril (Lisinopril 10 Mg Tablet) 10 mg PO DAILY [facility] Last Admin: 01/22/23 08:33 Dose: 10 mg Magnesium Hydroxide (Magnesium Hydroxide 30 Ml Oral.Susp) 30 ml PO BIDP PRN PRN Reason: Constipation Morphine Sulfate (Morphine 4 Mg/Ml Vial) 0 mg IV Q1HP PRN; Protocol PRN Reason: Per Pain Protocol Last Admin: 01/20/23 08:37 Dose: 1 mg Omeprazole (Omeprazole 20 Mg Capsule) 20 mg PO ACB [facility] Last Admin: 01/22/23 07:30 Dose: 20 mg Ondansetron HCl (Ondansetron 4 Mg/2 Ml Vial) 4 mg IV Q6HP PRN PRN Reason: Nausea And Vomiting Cyanocobalamin ( Vitamin B-12) 25 Mcg Tablet 1 dose PO DAILY [facility] Last Admin: 01/22/23 08:33 Dose: Not Given Polyethylene Glycol (Polyethylene Glycol 3350 17 Gm Packet) 17 gm PO DAILYP PRN PRN Reason: Constipation Potassium Chloride (Potassium Chloride 20 Meq Tablet) 40 meq PO BIDCC [facility] Stop: 01/22/23 17:31 Last Admin: 01/22/23 08:33 Dose: 40 meq Senna (Sennosides 1 Tablet) 2 tab PO HS [facility] Last Admin: 01/21/23 20:44 Dose: 2 tab Sodium Biphosphate/Sodium Phosphate (Fleets Adult Enema) 1 dose [place] Q3-4DAYS PRN PRN Reason: Constipation Sodium Chloride (0.9 % Sodium Chloride 10 Ml Syringe) 10 ml IV Q8 [facility] Last Admin: 01/22/23 13:08 Dose: Not Given Vitamin D (Vitamin D3 25 Mcg Tablet) 50 mcg PO DAILY [facility] Last Admin: 01/22/23 08:41 Dose: 50 mcg A/P Time Spent With Patient Time: Total time spent is greater than 50% in coordination of care (as documented) at patient's floor/unit and/or counseling patient: QUALITY VTE Deep Vein Thrombosis/Pulmonary Embolism Present on Admission: No
[2023-01-22] MEDS: HYDROcodone/APAP 5/325MG TABLET PO PRN (16:55)
[2023-01-22] MEDS: SENNOSIDES 1 TABLET PO SCH (20:28)
[2023-01-23] MEDS: 0.9 % SODIUM CHLORIDE 1,000 ML IV SCH ×2 (02:41→15:43)
[2023-01-23] MEDS: HYDROmorphone 0.5 MG/0.5 ML SYRINGE IV PRN ×2 (04:34→14:20)
[2023-01-23] MEDS: 0.9 % SODIUM CHLORIDE 10 ML SYRINGE IV SCH ×3 (04:34→22:34)
[2023-01-23 06:18] LABS: Basophils # (Auto) 0.01 K/mcL (0.00-0.30); Basophils % (Auto) 0.1 % (0.0-2.0); Eosinophils # (Auto) 0.03 K/mcL (0.00-0.70); Eosinophils % (Auto) 0.4 % (0.0-7.0); Hematocrit 29.8 % (34.1-44.9); Hemoglobin 9.8 g/dL (11.2-15.7); Lymphocytes # (Auto) 0.66 K/mcL (1.50-4.80); Lymphocytes % (Auto) 8.1 % (15.5-49.0); Mean Corpuscular HGB Conc 32.9 g/dL (31.0-36.0); Mean Platelet Volume 9.1 fL (8.8-12.5); Monocytes # (Auto) 0.93 K/mcL (0.10-0.90); Monocytes % (Auto) 11.4 % (1.0-12.0); Neutrophils % (Auto) 79.6 % (38.0-78.0); Platelet Count 276 K/mcL (140-440); RBC 3.24 M/mcL (3.59-5.38); Red Cell Distribution Width 12.7 % (11.5-14.5); WBC 8.1 K/mcL (4.5-11.0)
[2023-01-23 06:49] LABS: ALT/SGPT 7 U/L (<40); AST/SGOT 14 U/L (<32); Albumin 2.5 gm/dL (3.2-5.2); Albumin/Globulin Ratio 0.9 (1.0-2.3); Alkaline Phosphatase 71 U/L (39-117); Bilirubin,Total 0.4 mg/dL (0.1-1.0); Blood Urea Nitrogen 5 mg/dL (8-23); Calcium 8.4 mg/dL (8.6-10.4); Carbon Dioxide 24 mmol/L (22-30); Chloride 102 mmol/L (96-108); Globulin 2.8 gm/dL (2.2-3.7); Glomerular Filtration Rate 92; Glucose 98 mg/dL (70-105)
[2023-01-23] MEDS: OMEPRAZOLE 20 MG CAPSULE PO SCH (07:44)
[2023-01-23] MEDS: HYDROcodone/APAP 5/325MG TABLET PO PRN (07:44)
[2023-01-23] MEDS: FLUoxetine HCL 20 MG CAPSULE PO SCH (08:24)
[2023-01-23] MEDS: CYANOCOBALAMIN PO SCH (08:24)
[2023-01-23] MEDS: ENOXAPARIN 40 MG/0.4 ML SYRINGE SQ SCH (08:24)
[2023-01-23] MEDS: LISINOPRIL 10 MG TABLET PO SCH (08:24)
[2023-01-23] MEDS: VITAMIN D3 25 MCG TABLET PO SCH (08:24)
[2023-01-23] MEDS: DOCUSATE SODIUM 100 MG CAPSULE PO SCH ×2 (08:25→21:27)
--- NOTE | 2023-01-23 10:55 | Internal Med Progress Note ---
SUBJECTIVE Subjective Patient information: Note initiated : 01/23/23 at 10:54 am Service Date, if different from initiated Date: [] Patient: Karen Shaw 87 y/o F admitted on 01/19/23. Chief Complaint: [] Additional PMFSH (Level 3 Only): Ms. Shaw is a 87 year old female with past medical history of CKD stage II, hypertension, hyperlipidemia, Parkinson's disease, GERD, osteopenia, recurrent UTIs, DJD presented to ER accompanied by her daughter after she had a fall 2 days ago when she tripped in the living room landing on her left hip and left forearm. She had no head injury, no loss of consciousness. Patient lives with her daughter who heard the fall and came in immediately. Patient had some bruising on her left forearm and left ankle. At baseline patient is able to ambulate with a walker however does need some assistance with ADLs. However since the fall patient has been unable to bear weight on her left leg secondary to pain. Daughter has been unable to even assist her to walk to the restroom. Otherwise has been eating and drinking well. With no complaints of chest pain shortness of breath nausea vomiting abdominal pain. No neck low back pain. No numbness tingling focal weakness. No blood thinners. Was given a gram of Tylenol at 5 AM for left hip pain. Bruising to left forearm is healing well. On presentation patient was tachycardic with heart rate 97, blood pressure was stable. She was satting well on room air. CT abdomen and pelvis showed subcapital fracture of left femoral neck. Large hiatal hernia within organoaxial volvulus. No acute intra-abdominal hemorrhage or lacerated abdominal organs. Lab work including CBC and CMP was benign apart from mild hypokalemia of 3.4. Dr. Milligan from orthopedic was consulted by ER. Preoperative work-up including EKG and chest x-ray unremarkable. 01/20. Pt is demented and mostly non-verbal. She appeared comfortable, she expressed no complaints 01/21. Overnight no acute events. Labs reviewed. Hemoglobin 10.2 down from 11.6 yesterday. Otherwise fairly unremarkable. Daughter present at bedside. She reported that patient only speaks few words however she has not been doing so after the fall. Low-grade temp of 99.9. On 1 L nasal cannula oxygen. Denies any cough, shortness of breath, chest pain, palpitations, abdominal pain, urinary symptoms 01/22. Daughter present at bedside. Patient is more verbal per daughter. No acute events. He is working with therapies though she only took few steps. Patient is 97% on 2 L nasal cannula oxygen. Reports no pain 01/23. No acute events overnight vitals are stable. Patient reports no pain. He moglobin 9.8 down from 10.2. No chest pain no palpitations. Patient is working with therapies Review of system 14 point review of system is otherwise negative except as mentioned in HPI. Physical examination CONSTITUTIONAL: Alert sitting up in bed, in no acute distress HEAD: Normocephalic. Atraumatic. EYES: EOMI PERRL, corrective lens ENT: MMM. NECK: Supple. Full range of motion. Trachea midline. no midline C-spine tenderness step-offs CARDIOVASCULAR: S1-S2. Regular rate and rhythm. Systolic murmur. No JVD. No lower extremity edema. +2 radial DP pulses bilaterally. PULMONARY: Chest is clear bilaterally, satting well on room air ABDOMINAL: Abdomen soft, non tender. EXTREMITIES: left hip s/p left hip surgery, dressing c/d/i. distal nv intact SKIN: Warm and dry. No petechiae. NEUROLOGY: Significant dementia, remains nonverbal, no focal deficits Assessment and plan Left displaced femoral neck fracture, s/p ORIFwith prosthetic hemiarthroplasty by Dr. Milligan from orthopedic. Anemia. Stable, no indication for transfusion Mechanical fall Left forearm contusion, improving Hypokalemia, improved Hypertension Hyperlipidemia CKD stage II Parkinson's disease GERD DJD DVT prophylaxis in place Plan Monitor H&H Continue pain control Encourage participation in therapies Continue home meds Lab work as needed Will need SNF placement. Case management working on placement. Total time > 40 min Constitutional Vitals: Vital Signs Temp Pulse Resp BP Pulse Ox O2 Del Method O2 Flow Rate 98.8 F 97 H 18 150/93 91 Room Air 2 01/23/23 08:00 01/23/23 08:00 01/23/23 08:00 01/23/23 08:00 01/23/23 08:00 01/23/23 08:00 01/22/23 16:00 Period Temp Pulse Resp BP Sys/Ashley Pulse Ox O2 Del Method O2 Flow Rate Last 24 Hr 98.6 F-99.7 F 88-97 16-18 130-176/58-93 91-97 Nasal Cannula- Room Air 2-2 Intake and Output 01/22/23 01/23/23 01/23/23 19:59 03:59 11:59 Intake Total 1700 1000 120 Output Total 2 351 550 Balance 9089 499 430 Weight 63.14 kg Intake & Output: Intake & Output 01/22/23 01/23/23 01/23/23 19:59 03:59 11:59 Intake Total 1700 1000 120 Output Total 2 351 550 Balance 1913 789 430 Weight 63.14 kg Intake: IV 1000 Sodium Chloride 0.9% 1,000 ml @ 1000 75 mls/hr IV .[id number] [facility] Rx#: [id number] Oral 1700 120 Output: Void Amount 350 550 # of times incontinent of urine 2 1 Other: Meal Lunch Percent of Meal Consumed 75% 75% Feeding Ability Needs Supervision Urine Appearance Clear Urine Color Yellow # Voids 1 OBJ DATA Labs 01/23/23 05:23 01/23/23 05:23 Labs: Abnormal Lab Results 01/23/23 01/23/23 01/22/23 05:23 05:23 03:58 RBC 3.24 L Hgb 9.8 L Hct 29.8 L Immature Gran % (Auto) Neut % (Auto) 79.6 H Lymph % (Auto) 8.1 L [place] % (Auto) Lymph # (Auto) 0.66 L [place] # (Auto) 0.93 H Potassium 3.1 L Anion Gap 7.0 L BUN 5 L 7 L Creatinine 0.4 L 0.5 L Calcium 8.4 L 8.3 L Total Protein 5.3 L 5.5 L Albumin 2.5 L 2.5 L Albumin/Globulin Ratio 0.9 L 0.8 L Urine Protein Urine Ketones Urine WBC 01/22/23 01/21/23 01/21/23 03:58 10:20 05:28 RBC 3.37 L Hgb 10.2 L Hct 32.1 L Immature Gran % (Auto) Neut % (Auto) Lymph % (Auto) 9.3 L [place] % (Auto) Lymph # (Auto) 0.77 L [place] # (Auto) 0.95 H Potassium Anion Gap BUN Creatinine 0.5 L Calcium 7.9 L Total Protein 5.2 L Albumin 2.7 L Albumin/Globulin Ratio Urine Protein 30 A Urine Ketones 5 A Urine WBC 7 H 01/21/23 05:28 RBC 3.33 L Hgb 10.2 L Hct 31.2 L Immature Gran % (Auto) 0.6 H Neut % (Auto) Lymph % (Auto) 9.2 L [place] % (Auto) 14.3 H Lymph # (Auto) 0.83 L [place] # (Auto) 1.30 H Potassium Anion Gap BUN Creatinine Calcium Total Protein Albumin Albumin/Globulin Ratio Urine Protein Urine Ketones Urine WBC Meds: Medications Acetaminophen (Acetaminophen 325 Mg Tablet) 650 mg PO Q6HP PRN; Protocol PRN Reason: Per Pain Protocol/Fever > 101 Last Admin: 01/21/23 20:44 Dose: 650 mg Hydrocodone Bitart/Acetaminophen (Hydrocodone/Apap 5/325mg Tablet) 1 tab PO Q4HP PRN; Protocol PRN Reason: Per Pain Protocol Last Admin: 01/23/23 07:44 Dose: 1 tab Bisacodyl (Bisacodyl 10 Mg Supp.Rect) 10 mg [place] Q2-3DAYS PRN PRN Reason: Constipation Diphenhydramine HCl (Diphenhydramine 25 Mg Capsule) 50 mg PO HSP PRN PRN Reason: Insomnia Docusate Sodium (Docusate Sodium 100 Mg Capsule) 100 mg PO BID [facility] Last Admin: 01/23/23 08:25 Dose: Not Given Enoxaparin Sodium (Enoxaparin 40 Mg/0.4 Ml Syringe) 40 mg SQ DAILY [facility] Last Admin: 01/23/23 08:24 Dose: 40 mg Fluoxetine HCl (Fluoxetine Hcl 20 Mg Capsule) 40 mg PO DAILY [facility] Last Admin: 01/23/23 08:24 Dose: 40 mg Hydromorphone HCl (Hydromorphone 0.5 Mg/0.5 Ml Syringe) 0.5 mg IV Q2HP PRN; Protocol PRN Reason: Per Pain Protocol Last Admin: 01/23/23 04:34 Dose: 0.5 mg Sodium Chloride (Sodium Chloride 0.9%) 1,000 mls @ 75 mls/hr IV .[id number] [facility] Last Admin: 01/23/23 02:41 Dose: Not Given Labetalol HCl (Labetalol 5 Mg/Ml Ml) 10 mg IV Q4H PRN PRN Reason: for SBP > 160 DBP > 100 Lisinopril (Lisinopril 10 Mg Tablet) 10 mg PO DAILY [facility] Last Admin: 01/23/23 08:24 Dose: 10 mg Magnesium Hydroxide (Magnesium Hydroxide 30 Ml Oral.Susp) 30 ml PO BIDP PRN PRN Reason: Constipation Morphine Sulfate (Morphine 4 Mg/Ml Vial) 0 mg IV Q1HP PRN; Protocol PRN Reason: Per Pain Protocol Last Admin: 01/20/23 08:37 Dose: 1 mg Omeprazole (Omeprazole 20 Mg Capsule) 20 mg PO ACB [facility] Last Admin: 01/23/23 07:44 Dose: 20 mg Ondansetron HCl (Ondansetron 4 Mg/2 Ml Vial) 4 mg IV Q6HP PRN PRN Reason: Nausea And Vomiting Cyanocobalamin ( Vitamin B-12) 25 Mcg Tablet 1 dose PO DAILY [facility] Last Admin: 01/23/23 08:24 Dose: Not Given Polyethylene Glycol (Polyethylene Glycol 3350 17 Gm Packet) 17 gm PO DAILYP PRN PRN Reason: Constipation Senna (Sennosides 1 Tablet) 2 tab PO HS [facility] Last Admin: 01/22/23 20:28 Dose: 2 tab Sodium Biphosphate/Sodium Phosphate (Fleets Adult Enema) 1 dose [place] Q3-4DAYS PRN PRN Reason: Constipation Sodium Chloride (0.9 % Sodium Chloride 10 Ml Syringe) 10 ml IV Q8 [facility] Last Admin: 01/23/23 04:34 Dose: 10 ml Vitamin D (Vitamin D3 25 Mcg Tablet) 50 mcg PO DAILY [facility] Last Admin: 01/23/23 08:24 Dose: 50 mcg A/P Time Spent With Patient Time: Total time spent is greater than 50% in coordination of care (as documented) at patient's floor/unit and/or counseling patient: QUALITY VTE Deep Vein Thrombosis/Pulmonary Embolism Present on Admission: No
[2023-01-23] MEDS: SENNOSIDES 1 TABLET PO SCH (21:27)
[2023-01-24] MEDS: 0.9 % SODIUM CHLORIDE 10 ML SYRINGE IV SCH ×3 (04:27→20:48)
[2023-01-24] MEDS: HYDROcodone/APAP 5/325MG TABLET PO PRN ×3 (05:52→17:25)
[2023-01-24 06:58] LABS: Basophils # (Auto) 0.03 K/mcL (0.00-0.30); Basophils % (Auto) 0.4 % (0.0-2.0); Eosinophils # (Auto) 0.08 K/mcL (0.00-0.70); Hemoglobin 10.3 g/dL (11.2-15.7); Lymphocytes # (Auto) 0.87 K/mcL (1.50-4.80); Lymphocytes % (Auto) 11.1 % (15.5-49.0); Mean Cell Volume 97.6 fL (80.0-100.0); Mean Corpuscular HGB Conc 31.2 g/dL (31.0-36.0); Mean Platelet Volume 8.7 fL (8.8-12.5); Monocytes # (Auto) 1.02 K/mcL (0.10-0.90); Monocytes % (Auto) 13.1 % (1.0-12.0); Platelet Count 311 K/mcL (140-440); RBC 3.38 M/mcL (3.59-5.38); Red Cell Distribution Width 12.8 % (11.5-14.5); WBC 7.8 K/mcL (4.5-11.0)
[2023-01-24 07:11] LABS: ALT/SGPT 9 U/L (<40); AST/SGOT 18 U/L (<32); Albumin 2.5 gm/dL (3.2-5.2); Albumin/Globulin Ratio 0.8 (1.0-2.3); Alkaline Phosphatase 65 U/L (39-117); Bilirubin,Total 0.4 mg/dL (0.1-1.0); Blood Urea Nitrogen 5 mg/dL (8-23); Calcium 8.6 mg/dL (8.6-10.4); Carbon Dioxide 25 mmol/L (22-30); Chloride 99 mmol/L (96-108); Globulin 3.1 gm/dL (2.2-3.7); Glomerular Filtration Rate 92; Glucose 102 mg/dL (70-105)
[2023-01-24] MEDS: VITAMIN D3 25 MCG TABLET PO SCH (08:06)
[2023-01-24] MEDS: LISINOPRIL 10 MG TABLET PO SCH ×2 (08:07→15:02)
[2023-01-24] MEDS: OMEPRAZOLE 20 MG CAPSULE PO SCH (08:07)
[2023-01-24] MEDS: FLUoxetine HCL 20 MG CAPSULE PO SCH (08:07)
[2023-01-24] MEDS: ENOXAPARIN 40 MG/0.4 ML SYRINGE SQ SCH (08:08)
--- NOTE | 2023-01-24 11:07 | Discharge Summary ---
Discharge Provider Provider IMPORTANT FOLLOW-UP INFORMATION FOR PCP: Patient information: Note initiated : 01/24/23 at 11:05 am Service Date, if different from initiated Date: [] Patient: Karen Shaw 87 y/o F admitted on 01/19/23. Chief Complaint: [] Date of admission: 01/19/23 14:50 Discharge date: 01/24/23 Primary care physician: Christina Guy Consults: 01/19/23 Consult to Physician [CONS] Stat Comment: left hip fx Consulting Provider: Corky Moreira Reason For Exam: Physician to Consult COURSE Hospital Course Hospital course: Ms. Shaw is a 87 year old female with past medical history of CKD stage II, hypertension, hyperlipidemia, Parkinson's disease, GERD, osteopenia, recurrent UTIs, DJD presented to ER accompanied by her daughter after she had a fall 2 days ago when she tripped in the living room landing on her left hip and left forearm. She had no head injury, no loss of consciousness. Patient lives with her daughter who heard the fall and came in immediately. Patient had some bruising on her left forearm and left ankle. At baseline patient is able to ambulate with a walker however does need some assistance with ADLs. However since the fall patient has been unable to bear weight on her left leg secondary to pain. Daughter has been unable to even assist her to walk to the restroom. Otherwise has been eating and drinking well. With no complaints of chest pain shortness of breath nausea vomiting abdominal pain. No neck low back pain. No numbness tingling focal weakness. No blood thinners. Was given a gram of Tylenol at 5 AM for left hip pain. Bruising to left forearm is healing well. On presentation patient was tachycardic with heart rate 97, blood pressure was stable. She was satting well on room air. CT abdomen and pelvis showed subcapital fracture of left femoral neck. Large hiatal hernia within organoaxial volvulus. No acute intra-abdominal hemorrhage or lacerated abdominal organs. Lab work including CBC and CMP was benign apart from mild hypokalemia of 3.4. Dr. Milligan from orthopedic was consulted by ER. Preoperative work-up including EKG and chest x-ray unremarkable. 01/20. Pt is demented and mostly non-verbal. She appeared comfortable, she expressed no complaints 01/21. Overnight no acute events. Labs reviewed. Hemoglobin 10.2 down from 11.6 yesterday. Otherwise fairly unremarkable. Daughter present at bedside. She reported that patient only speaks few words however she has not been doing so after the fall. Low-grade temp of 99.9. On 1 L nasal cannula oxygen. Denies any cough, shortness of breath, chest pain, palpitations, abdominal pain, urinary symptoms 01/22. Daughter present at bedside. Patient is more verbal per daughter. No acute events. He is working with therapies though she only took few steps. Patient is 97% on 2 L nasal cannula oxygen. Reports no pain 01/23. No acute events overnight vitals are stable. Patient reports no pain. Hemoglobin 9.8 down from 10.2. No chest pain no palpitations. Patient is working with therapies. 01/24. Discharged to senior care facility for low intensity rehab. Weightbearing as tolerated. Lovenox for DVT prophylaxis. Follow-up with Dr. Milligan after hospital discharge. Discharge diagnosis: Left femoral neck fracture Time Spent with Patient Time attestation: Total time spent providing and/or coordinating discharge services: Time spent: Greater than 30 minutes EXAM Constitutional Vitals: Temp Pulse Resp BP Pulse Ox O2 Del Method O2 Flow Rate 98.6 F 84 16 146/72 94 Room Air 2 01/24/23 07:53 01/24/23 07:53 01/24/23 07:53 01/24/23 07:53 01/24/23 07:53 01/24/23 07:53 01/22/23 16:00 Discharge Data Data Completed and Pending Labs on day of discharge: Labs from last 24 hours 01/24/23 01/24/23 05:24 05:24 WBC 7.8 RBC 3.38 L Hgb 10.3 L Hct 33.0 L MCV 97.6 MCH 30.5 MCHC 31.2 RDW 12.8 Plt Count 311 MPV 8.7 L Immature Gran % (Auto) 0.4 Neut % (Auto) 74.0 Lymph % (Auto) 11.1 L [place] % (Auto) 13.1 H Eos % (Auto) 1.0 Baso % (Auto) 0.4 Lymph # (Auto) 0.87 L [place] # (Auto) 1.02 H Eos # (Auto) 0.08 Baso # (Auto) 0.03 Immature Gran # 0.03 Absolute Neutrophils 5.78 Sodium 134 Potassium 3.4 Chloride 99 Carbon Dioxide 25 Anion Gap 10.0 BUN 5 L Creatinine 0.4 L GFR Calculation 92 Glucose 102 Calcium 8.6 Total Bilirubin 0.4 AST 18 ALT 9 Alkaline Phosphatase 65 Total Protein 5.6 L Albumin 2.5 L Globulin 3.1 Albumin/Globulin Ratio 0.8 L Discharge Plan Patient/Caregiver Discharge Instructions Activity: as per physical therapy Diet: Regular Diet Prescriptions: New acetaminophen 325 mg Tablet 650 mg PO Q6HP PRN (Reason: Per Pain Protocol/Fever > 101) Qty: 30 0RF bisacodyl [Gentle Laxative (bisacodyl)] 10 mg Suppository 10 mg [place] Q2-3DAYS PRN (Reason: Constipation) Qty: 12 0RF enoxaparin 40 mg/0.4 mL syringe 40 mg subcut DAILY 28 Days Qty: 4 4RF polyethylene glycol 3350 [HealthyLax] 17 gram Powder In Packet 17 g PO DAILYP PRN (Reason: Constipation) Qty: 30 0RF hydrocodone-acetaminophen 5-325 mg Tablet 1 tab PO Q4HP PRN (Reason: Per Pain Protocol) Qty: 10 0RF sennosides [Senna Lax] 8.6 mg Tablet 2 tab PO BID 15 Days Qty: 60 0RF Continued sennosides-docusate sodium [Senokot-S] 1 EACH tablet 1 ea PO PRN PRN (Reason: Constipation) omeprazole 20 MG capsule,delayed release(DR/EC) 20 mg PO ACB cholecalciferol (vitamin D3) 2,000 UNIT tablet,chewable 2,000 unit PO DAILY cyanocobalamin (vitamin B-12) 25 mcg Tablet 25 mcg PO QDAY fluoxetine 40 mg DAILY diphenhydramine-acetaminophen [Acetaminophen PM Extra Str] 25-500 mg Tablet 2 tab PO QHS PRN (Reason: Pain (Scale Score 1-3)) lisinopril 10 mg tablet 10 mg PO QDAY Follow Up Plan Follow up with: Henok Milligan MD [Physician] - 02/28/23 12:50 pm (This is your 6 week shirin gical follow up appointment with Dr. Milligan) Christina Guy MD [Primary Care Provider] - Patient Disposition: Xfer SNF Prognosis: Fair Rehab Potential: Fair I certify that the patient requires SNF services: Yes Overall status at discharge: patient is progressing back to baseline Discharge Orders: Discharge Order (Routine); Ordered 01/24/23 Ordered By: Mansoor GOFF VTE Deep Vein Thrombosis/Pulmonary Embolism Present on Admission: No
--- NOTE | 2023-01-24 11:34 | Internal Med Progress Note ---
SUBJECTIVE Subjective Patient information: Note initiated : 01/24/23 at 11:34 am Service Date, if different from initiated Date: [] Patient: Karen Shaw 87 y/o F admitted on 01/19/23. Chief Complaint: [] Interval history: Ms. Shaw is a 87 year old female with past medical history of CKD stage II, hypertension, hyperlipidemia, Parkinson's disease, GERD, osteopenia, recurrent UTIs, DJD presented to ER accompanied by her daughter after she had a fall 2 days ago when she tripped in the living room landing on her left hip and left forearm. She had no head injury, no loss of consciousness. Patient lives with her daughter who heard the fall and came in immediately. Patient had some bruising on her left forearm and left ankle. At baseline patient is able to ambulate with a walker however does need some assistance with ADLs. However since the fall patient has been unable to bear weight on her left leg secondary to pain. Daughter has been unable to even assist her to walk to the restroom. Otherwise has been eating and drinking well. With no complaints of chest pain shortness of breath nausea vomiting abdominal pain. No neck low back pain. No numbness tingling focal weakness. No blood thinners. Was given a gram of Tylenol at 5 AM for left hip pain. Bruising to left forearm is healing well. On presentation patient was tachycardic with heart rate 97, blood pressure was stable. She was satting well on room air. CT abdomen and pelvis showed subcapital fracture of left femoral neck. Large hiatal hernia within organ oaxial volvulus. No acute intra-abdominal hemorrhage or lacerated abdominal organs. Lab work including CBC and CMP was benign apart from mild hypokalemia of 3.4. Dr. Milligan from orthopedic was consulted by ER. Preoperative work- up including EKG and chest x-ray unremarkable. 01/20. Pt is demented and mostly non-verbal. She appeared comfortable, she expressed no complaints 01/21. Overnight no acute events. Labs reviewed. Hemoglobin 10.2 down from 11.6 yesterday. Otherwise fairly unremarkable. Daughter present at bedside. She reported that patient only speaks few words however she has not been doing so after the fall. Low-grade temp of 99.9. On 1 L nasal cannula oxygen. Denies any cough, shortness of breath, chest pain, palpitations, abdominal pain, urinary symptoms 01/22. Daughter present at bedside. Patient is more verbal per daughter. No acute events. He is working with therapies though she only took few steps. Patient is 97% on 2 L nasal cannula oxygen. Reports no pain 01/23. No acute events overnight vitals are stable. Patient reports no pain. Hemoglobin 9.8 down from 10.2. No chest pain no palpitations. Patient is working with therapies. 01/24. Plan was for discharge today senior care facility for low intensity rehab however the senior care facility canceled. Continue profiling for low intensity rehab. Physical exam Head: Atraumatic, normal inspection. Eyes: normal appearance, no scleral icterus. Neck: full ROM Respiratory: no respiratory distress. Cardiovascular: normal rate and rhythm, S1, S2. GI/Abdominal: soft, nontender, no guarding. Extremities: Left hip surgery covered with clean bandage. Neurological: CN II-XII intact, intact motor, intact sensation. Psychiatric: Impaired memory. Skin: warm, normal color Constitutional Vitals: Vital Signs Temp Pulse Resp BP Pulse Ox O2 Del Method O2 Flow Rate 98.6 F 84 16 146/72 94 Room Air 2 01/24/23 07:53 01/24/23 07:53 01/24/23 07:53 01/24/23 07:53 01/24/23 07:53 01/24/23 07:53 01/22/23 16:00 Period Temp Pulse Resp BP Sys/Ashley Pulse Ox O2 Del Method O2 Flow Rate Last 24 Hr 98.4 F-98.6 F 80-88 16-20 146-150/72-80 91-96 Room Air-Room Air Intake and Output 01/23/23 01/24/23 01/24/23 19:59 03:59 11:59 Intake Total 1280 640 Output Total 850 1000 852 Balance 430 -1000 -212 Weight 62.913 kg Intake & Output: Intake & Output 01/23/23 01/24/23 01/24/23 19:59 03:59 11:59 Intake Total 1280 640 Output Total 850 1000 852 Balance 430 -1000 -212 Weight 62.913 kg Intake: Oral 1280 640 Output: Urine Catheter Amount 850 Void Amount 850 1000 # of times incontinent of urine 2 Other: Meal Breakfast Percent of Meal Consumed 25% Urine Appearance Clear Clear Clear Urine Color Yellow Pale Yellow Urine Odor Normal # Voids 1 OBJ DATA Labs 01/24/23 05:24 01/24/23 05:24 Labs: Abnormal Lab Results 01/24/23 01/24/23 01/23/23 05:24 05:24 05:23 RBC 3.38 L Hgb 10.3 L Hct 33.0 L MPV 8.7 L Neut % (Auto) Lymph % (Auto) 11.1 L [place] % (Auto) 13.1 H Lymph # (Auto) 0.87 L [place] # (Auto) 1.02 H Potassium Anion Gap 7.0 L BUN 5 L 5 L Creatinine 0.4 L 0.4 L Calcium 8.4 L Total Protein 5.6 L 5.3 L Albumin 2.5 L 2.5 L Albumin/Globulin Ratio 0.8 L 0.9 L 01/23/23 01/22/23 01/22/23 05:23 03:58 03:58 RBC 3.24 L 3.37 L Hgb 9.8 L 10.2 L Hct 29.8 L 32.1 L MPV Neut % (Auto) 79.6 H Lymph % (Auto) 8.1 L 9.3 L [place] % (Auto) Lymph # (Auto) 0.66 L 0.77 L [place] # (Auto) 0.93 H 0.95 H Potassium 3.1 L Anion Gap BUN 7 L Creatinine 0.5 L Calcium 8.3 L Total Protein 5.5 L Albumin 2.5 L Albumin/Globulin Ratio 0.8 L Meds: Medications Acetaminophen (Acetaminophen 325 Mg Tablet) 650 mg PO Q6HP PRN; Protocol PRN Reason: Per Pain Protocol/Fever > 101 Last Admin: 01/21/23 20:44 Dose: 650 mg Hydrocodone Bitart/Acetaminophen (Hydrocodone/Apap 5/325mg Tablet) 1 tab PO Q4HP PRN; Protocol PRN Reason: Per Pain Protocol Last Admin: 01/24/23 10:07 Dose: 1 tab Bisacodyl (Bisacodyl 10 Mg Supp.Rect) 10 mg [place] Q2-3DAYS PRN PRN Reason: Constipation Diphenhydramine HCl (Diphenhydramine 25 Mg Capsule) 50 mg PO HSP PRN PRN Reason: Insomnia Docusate Sodium (Docusate Sodium 100 Mg Capsule) 100 mg PO BID [facility] Last Admin: 01/23/23 21:27 Dose: Not Given Enoxaparin Sodium (Enoxaparin 40 Mg/0.4 Ml Syringe) 40 mg SQ DAILY [facility] Last Admin: 01/24/23 08:08 Dose: 40 mg Fluoxetine HCl (Fluoxetine Hcl 20 Mg Capsule) 40 mg PO DAILY [facility] Last Admin: 01/24/23 08:07 Dose: 40 mg Hydromorphone HCl (Hydromorphone 0.5 Mg/0.5 Ml Syringe) 0.5 mg IV Q2HP PRN; Protocol PRN Reason: Per Pain Protocol Last Admin: 01/23/23 14:20 Dose: 0.5 mg Labetalol HCl (Labetalol 5 Mg/Ml Ml) 10 mg IV Q4H PRN PRN Reason: for SBP > 160 DBP > 100 Lisinopril (Lisinopril 10 Mg Tablet) 10 mg PO DAILY [facility] Last Admin: 01/23/23 08:24 Dose: 10 mg Lisinopril (Lisinopril 10 Mg Tablet) 10 mg PO QDAY [facility] Last Admin: 01/24/23 08:07 Dose: 10 mg Magnesium Hydroxide (Magnesium Hydroxide 30 Ml Oral.Susp) 30 ml PO BIDP PRN PRN Reason: Constipation Morphine Sulfate (Morphine 4 Mg/Ml Vial) 0 mg IV Q1HP PRN; Protocol PRN Reason: Per Pain Protocol Last Admin: 01/20/23 08:37 Dose: 1 mg Omeprazole (Omeprazole 20 Mg Capsule) 20 mg PO ACB [facility] Last Admin: 01/24/23 08:07 Dose: 20 mg Ondansetron HCl (Ondansetron 4 Mg/2 Ml Vial) 4 mg IV Q6HP PRN PRN Reason: Nausea And Vomiting Cyanocobalamin ( Vitamin B-12) 25 Mcg Tablet 1 dose PO DAILY [facility] Last Admin: 01/23/23 08:24 Dose: Not Given Polyethylene Glycol (Polyethylene Glycol 3350 17 Gm Packet) 17 gm PO DAILYP PRN PRN Reason: Constipation Senna (Sennosides 1 Tablet) 2 tab PO HS [facility] Last Admin: 01/23/23 21:27 Dose: Not Given Sodium Biphosphate/Sodium Phosphate (Fleets Adult Enema) 1 dose NC Q3-4DAYS PRN PRN Reason: Constipation Sodium Chloride (0.9 % Sodium Chloride 10 Ml Syringe) 10 ml IV Q8 [facility] Last Admin: 01/24/23 04:27 Dose: 10 ml Vitamin D (Vitamin D3 25 Mcg Tablet) 50 mcg PO DAILY [facility] Last Admin: 01/24/23 08:06 Dose: 50 mcg A/P Narrative A/P Narrative: #Left femoral neck fracture status post ORIF 01/21/2023 #Anemia. Stable, no indication for transfusion #Mechanical fall #Left forearm contusion, improving #Hypokalemia, improved #Hypertension #Hyperlipidemia #CKD stage II #Parkinson's disease #GERD #DJD Plan: -Analgesics as needed. -PT and OT. -Continue important home medications, zoomed home lisinopril today. -Lab work as needed -Lovenox for DVT prophylaxis. -Case management working on placement. Time Spent With Patient Time: Total time spent is greater than 50% in coordination of care (as documented) at patient's floor/unit and/or counseling patient: QUALITY VTE Deep Vein Thrombosis/Pulmonary Embolism Present on Admission: No
[2023-01-24] MEDS: CYANOCOBALAMIN PO SCH (15:02)
[2023-01-24] MEDS: DOCUSATE SODIUM 100 MG CAPSULE PO SCH ×2 (15:02→20:47)
[2023-01-24] MEDS: HYDROmorphone 0.5 MG/0.5 ML SYRINGE IV PRN (20:47)
[2023-01-24] MEDS: SENNOSIDES 1 TABLET PO SCH (20:47)
[2023-01-25] MEDS: HYDROcodone/APAP 5/325MG TABLET PO PRN ×2 (02:29→08:39)
[2023-01-25] MEDS: 0.9 % SODIUM CHLORIDE 10 ML SYRINGE IV SCH (05:53)
[2023-01-25 06:39] LABS: Basophils # (Auto) 0.04 K/mcL (0.00-0.30); Basophils % (Auto) 0.6 % (0.0-2.0); Eosinophils # (Auto) 0.19 K/mcL (0.00-0.70); Lymphocytes # (Auto) 0.76 K/mcL (1.50-4.80); Lymphocytes % (Auto) 11.9 % (15.5-49.0); Mean Cell Volume 95.1 fL (80.0-100.0); Mean Corpuscular HGB Conc 32.3 g/dL (31.0-36.0); Mean Platelet Volume 8.6 fL (8.8-12.5); Monocytes % (Auto) 12.6 % (1.0-12.0); Neutrophils % (Auto) 71.4 % (38.0-78.0); Platelet Count 346 K/mcL (140-440); RBC 3.26 M/mcL (3.59-5.38); Red Cell Distribution Width 12.5 % (11.5-14.5); WBC 6.4 K/mcL (4.5-11.0)
[2023-01-25 07:08] LABS: ALT/SGPT 11 U/L (<40); AST/SGOT 17 U/L (<32); Albumin 2.4 gm/dL (3.2-5.2); Albumin/Globulin Ratio 0.8 (1.0-2.3); Alkaline Phosphatase 57 U/L (39-117); Bilirubin,Total 0.3 mg/dL (0.1-1.0); Blood Urea Nitrogen 6 mg/dL (8-23); Calcium 8.2 mg/dL (8.6-10.4); Carbon Dioxide 25 mmol/L (22-30); Chloride 99 mmol/L (96-108); Globulin 2.9 gm/dL (2.2-3.7); Glomerular Filtration Rate 86; Glucose 98 mg/dL (70-105)
--- NOTE | 2023-01-25 08:22 | Discharge Summary ---
Discharge Provider Provider IMPORTANT FOLLOW-UP INFORMATION FOR PCP: Patient information: Note initiated : 01/25/23 at 8:20 am Service Date, if different from initiated Date: [] Patient: Karen Shaw 87 y/o F admitted on 01/19/23. Chief Complaint: [] Date of admission: 01/19/23 14:50 Discharge date: 01/25/23 Primary care physician: Christina Guy Consults: 01/19/23 Consult to Physician [CONS] Stat Comment: left hip fx Consulting Provider: Corky Moreira Reason For Exam: Physician to Consult COURSE Hospital Course Hospital course: Ms. Shaw is a 87 year old female with past medical history of CKD stage II, hypertension, hyperlipidemia, Parkinson's disease, GERD, osteopenia, recurrent UTIs, DJD presented to ER accompanied by her daughter after she had a fall 2 days ago when she tripped in the living room landing on her left hip and left forearm. She had no head injury, no loss of consciousness. Patient lives with her daughter who heard the fall and came in immediately. Patient had some bruising on her left forearm and left ankle. At baseline patient is able to ambulate with a walker however does need some assistance with ADLs. However since the fall patient has been unable to bear weight on her left leg secondary to pain. Daughter has been unable to even assist her to walk to the restroom. Otherwise has been eating and drinking well. With no complaints of chest pain shortness of breath nausea vomiting abdominal pain. No neck low back pain. No numbness tingling focal weakness. No blood thinners. Was given a gram of Tylenol at 5 AM for left hip pain. Bruising to left forearm is healing well. On presentation patient was tachycardic with heart rate 97, blood pressure was stable. She was satting well on room air. CT abdomen and pelvis showed subcapital fracture of left femoral neck. Large hiatal hernia within organoaxial volvulus. No acute intra-abdominal hemorrhage or lacerated abdominal organs. Lab work including CBC and CMP was benign apart from mild hypokalemia of 3.4. Dr. Milligan from orthopedic was consulted by ER. Preoperative work-up including EKG and chest x-ray unremarkable. 01/20. Pt is demented and mostly non-verbal. She appeared comfortable, she expressed no complaints 01/21. Overnight no acute events. Labs reviewed. Hemoglobin 10.2 down from 11.6 yesterday. Otherwise fairly unremarkable. Daughter present at bedside. She reported that patient only speaks few words however she has not been doing so after the fall. Low-grade temp of 99.9. On 1 L nasal cannula oxygen. Denies any cough, shortness of breath, chest pain, palpitations, abdominal pain, urinary symptoms 01/22. Daughter present at bedside. Patient is more verbal per daughter. No acute events. He is working with therapies though she only took few steps. Patient is 97% on 2 L nasal cannula oxygen. Reports no pain 01/23. No acute events overnight vitals are stable. Patient reports no pain. Hemoglobin 9.8 down from 10.2. No chest pain no palpitations. Patient is working with therapies. 01/24. Plan was for discharge today care home facility for low intensity rehab however the care home facility canceled. Continue profiling for low intensity rehab. 01/25. No significant events overnight, vital stable. The patient has been accepted to a care home facility for low intensity rehab. Discharged to the care home facility. Lovenox for approximately 28 days for DVT prophylaxis. Physical exam Head: Atraumatic, normal inspection. Eyes: normal appearance, no scleral icterus. Neck: full ROM Respiratory: no respiratory distress. Cardiovascular: normal rate and rhythm, S1, S2. GI/Abdominal: soft, nontender, no guarding. Extremities: Left hip surgery covered with clean bandage. Neurological: CN II-XII intact, intact motor, intact sensation. Psychiatric: Impaired memory. Skin: warm, normal color Discharge diagnosis: Left femoral neck fracture Time Spent with Patient Time attestation: Total time spent providing and/or coordinating discharge services: Time spent: Greater than 30 minutes EXAM Constitutional Vitals: Temp Pulse Resp BP Pulse Ox O2 Del Method O2 Flow Rate 97.9 F 80 20 152/75 97 Room Air 2 01/25/23 07:18 01/25/23 07:18 01/25/23 07:18 01/25/23 07:18 01/25/23 07:18 01/25/23 07:18 01/22/23 16:00 Discharge Data Data Completed and Pending Labs on day of discharge: Labs from last 24 hours 01/25/23 01/25/23 05:33 05:33 WBC 6.4 RBC 3.26 L Hgb 10.0 L Hct 31.0 L MCV 95.1 MCH 30.7 MCHC 32.3 RDW 12.5 Plt Count 346 MPV 8.6 L Immature Gran % (Auto) 0.5 Neut % (Auto) 71.4 Lymph % (Auto) 11.9 L [place] % (Auto) 12.6 H Eos % (Auto) 3.0 Baso % (Auto) 0.6 Lymph # (Auto) 0.76 L [place] # (Auto) 0.80 Eos # (Auto) 0.19 Baso # (Auto) 0.04 Immature Gran # 0.03 Absolute Neutrophils 4.55 Sodium 134 Potassium 3.3 Chloride 99 Carbon Dioxide 25 Anion Gap 10.0 BUN 6 L Creatinine 0.5 L GFR Calculation 86 Glucose 98 Calcium 8.2 L Total Bilirubin 0.3 AST 17 ALT 11 Alkaline Phosphatase 57 Total Protein 5.3 L Albumin 2.4 L Globulin 2.9 Albumin/Globulin Ratio 0.8 L Discharge Plan Patient/Caregiver Discharge Instructions Activity: as per physical therapy Diet: Regular Diet Prescriptions: New acetaminophen 325 mg Tablet 650 mg PO Q6HP PRN (Reason: Per Pain Protocol/Fever > 101) Qty: 30 0RF bisacodyl [Gentle Laxative (bisacodyl)] 10 mg Suppository 10 mg [place] Q2-3DAYS PRN (Reason: Constipation) Qty: 12 0RF enoxaparin 40 mg/0.4 mL syringe 40 mg subcut DAILY 28 Days Qty: 4 4RF polyethylene glycol 3350 [HealthyLax] 17 gram Powder In Packet 17 g PO DAILYP PRN (Reason: Constipation) Qty: 30 0RF hydrocodone-acetaminophen 5-325 mg Tablet 1 tab PO Q4HP PRN (Reason: Per Pain Protocol) Qty: 10 0RF sennosides [Senna Lax] 8.6 mg Tablet 2 tab PO BID 15 Days Qty: 60 0RF Continued sennosides-docusate sodium [Senokot-S] 1 EACH tablet 1 ea PO PRN PRN (Reason: Constipation) omeprazole 20 MG capsule,delayed release(DR/EC) 20 mg PO ACB cholecalciferol (vitamin D3) 2,000 UNIT tablet,chewable 2,000 unit PO DAILY cyanocobalamin (vitamin B-12) 25 mcg Tablet 25 mcg PO QDAY fluoxetine 40 mg DAILY diphenhydramine-acetaminophen [Acetaminophen PM Extra Str] 25-500 mg Tablet 2 tab PO QHS PRN (Reason: Pain (Scale Score 1-3)) lisinopril 10 mg tablet 10 mg PO QDAY Follow Up Plan Follow up with: Henok Milligan MD [Physician] - 02/28/23 12:50 pm (This is your 6 week surgical follow up appointment with Dr. Milligan) Christina Guy MD [Primary Care Provider] - Patient Disposition: Xfer SNF Prognosis: Fair Rehab Potential: Fair I certify that the patient requires SNF services: Yes Overall status at discharge: patient is progressing back to baseline Discharge Orders: Discharge Order (Routine); Ordered 01/24/23 Ordered By: Mansoor Hernandez QUALITY VTE Deep Vein Thrombosis/Pulmonary Embolism Present on Admission: No
[2023-01-25] MEDS: OMEPRAZOLE 20 MG CAPSULE PO SCH (08:38)
[2023-01-25] MEDS: VITAMIN D3 25 MCG TABLET PO SCH (08:39)
[2023-01-25] MEDS: LISINOPRIL 10 MG TABLET PO SCH (08:39)
[2023-01-25] MEDS: DOCUSATE SODIUM 100 MG CAPSULE PO SCH (08:39)
[2023-01-25] MEDS: FLUoxetine HCL 20 MG CAPSULE PO SCH (08:39)
[2023-01-25] MEDS: ENOXAPARIN 40 MG/0.4 ML SYRINGE SQ SCH (08:40)
--- NOTE | 2023-01-31 07:10 | EKG ---
[facility] Test Date: 2023-01-19 Pat Name: Karen Shaw Department: ED Room: Gender: Female Gymnastics Instructor: INA : 1935 Requested By: Ary Arthur Order Number: [id number] Reading MD: Shaji Rajan M.D. Measurements Intervals [place] Rate: 100 P: 7 GA: 210 QRS: -30 QRSD: 87 T: 17 QT: 383 QTc: 494 Interpretive Statements Sinus tachycardia Borderline prolonged GA interval Left axis deviation Borderline prolonged QT interval Electronically Signed On 01-31-2023 7:10:38 PDT by Shaji Rajan M.D. /[id number]
== END 2023-01-25 11:45 | DRG 522 ==
LOC: ED 07:40 → MEDSUR 14:50
PROVIDERS: ADMIT Internal Medicine; ATTEND Internal Medicine